=== PATIENT | male | born 1965 | race Caucasian/White ===

== ENCOUNTER 2020-06-26 12:25 | Inpatient (IN) | payer BC ==
[~2020-06-26] VITALS: Ht 182.9 cm; Wt 104.8 kg
--- OUTSIDE RECORDS SUMMARY | ~2020-06-26 | XMS | Encounter Summary ---
Demographics + + + | Address | [address] | | | [place] [address] | + + + | Home Phone | | + + + | Preferred Language | Unknown | + + + | Marital Status | Single | + + + | Catholic Affiliation | Unknown | + + + | Race | White | + + + | Ethnic Group | Not or | + + + Author + + + | Author | [facility] | + + + | Organization | [facility] | + + + | Address | Unknown | + + + | Phone | Unavailable | + + + Support + + +---------+ + | Name | Relationship | Address | Phone | + + +---------+ + | Karma Ortiz | ECON | Unknown | | + + +---------+ + Care Team Providers + +------+ + | Care Eyeglass Fitter Name | Role | Phone | + +------+ + | No Pcp Per Patient | PCP | Unavailable | + +------+ + Reason for Visit Diagnostic Testing (Routine) +--------+--------+ + + + + | Status | Reason | Specialty | Diagnoses / | Referred By | Referred To | | | | | Procedures | Contact | Contact | +--------+--------+ + + + + | Closed | | Cardiology | Diagnoses | Howard, | Car Echo | | | | | CHF | MD Dave | [facility] [address] | | | | | (congestive | [address] | | | | | heart | Mario Horn | [address] | | | | | failure) | Seng | [place] | | | | | (HCC) | [place], [place] | Building, [address]nd | | | | | Unspecified | [address] | floor | | | | | essential | Phone: | [place], [place] | | | | | hypertension | [phone] | [address] | | | | | Procedures | Fax: | Phone: | | | | | | [phone] | [phone] | | | | | TRANSTHORACI | | | | | | | C | | | | | | | ECHOCARDIOGR | | | | | | | AM, ADULT | | | +--------+--------+ + + + + Encounter Details +--------+ + + + + | Date | Type | Department | Care Team | Description | +--------+ + + + + | 02/21/ | Hospital | Cardiac | | | | 2010 | Encounter | Non-Invasive Testing | | | | | | at [facility] [address] | | | | | | [facility] | [facility], | | | | | | [address] | | | | | | [place], [place] | | | | | | [address] | | | | | | [phone] | | | +--------+ + + + + Social History + +-------+ [...] + + + + + + | Job Start Date | Occupation | Industry | + + + + | Not on file | Not on file | Not on file | + + + + + + + + | Travel History | Travel Start | Travel End | + + + + + + | No recent travel history available. | + + documented as of this encounter Medications at Time of Discharge + + + +---------+ + + | Medication | Sig | Dispensed | Refills | Start | End Date | | | | | | Date | | + + + +---------+ + + | albuterol (PROAIR | Inhale 1-2 Puffs | | 0 | | | | HFA) 90 | every four hours as | | | | | | mcg/Actuation | needed. | | | | | | Inhalation HFA | | | | | | | Aerosol Inhaler | | | | | | + + + +---------+ + + | | Inhale 2 Puffs every | | 0 | 02/22/20 | | | albuterol-ipratropiu | six hours. | | | 11 | | | m (COMBIVENT) 18-103 | | | | | | | mcg/Actuation | | | | | | | Inhalation Aerosol | | | | | | + + + +---------+ + + | | Take 1 Cap by mouth | 30 Cap | 30 | 02/22/20 | | | hydrochlorothiazide | once daily. | | | 11 | | | 12.5 mg Oral | | | | | | | CapsuleIndications: | | | | | | | CHF (congestive | | | | | | | heart failure) | | | | | | | ([facility]), Unspecified | | | | | | | essential | | | | | | | hypertension | | | | | | + + + +---------+ + + | metoprolol | Take 1 Tab by mouth | 60 Tab | 0 | 02/22/20 | | | tartrate 50 mg Oral | two times daily. | | | 11 | | | TabletIndications: | | | | | | | CHF (congestive | | | | | | | heart failure) | | | | | | | ([facility]), Unspecified | | | | | | | essential | | | | | | | hypertension | | | | | | + + + +---------+ + + documented as of this encounter Progress Hayley Garcia - 02/21/2011 2:02 PM PDTTransthoracic echocardiogram completed. Final r eport to follow. documented in this enco unter Plan of Treatment Not on filedocumented as of this encounter Procedures + +--------+ + + + | Procedure Name | Priori | Date/Time | Associated Diagnosis | Comments | | | ty | | | | + +--------+ + + + | TRANSTHORACIC | | 02/21/2011 | | Results for this | | ECHOCARDIOGRAM, | | 12:00 AM | | procedure are in the | | ADULT | | PDT | | results section. | + +--------+ + + + documented in this encounter Results TRANSTHORACIC ECHOCARDIOGRAM, ADULT (02/21/2011 12:00 AM PDT) + + + | Narrative | Performed At | + + + | | | + + + + + | Procedure Note | + + | Xochitl Lorenzo - 02/22/2011 10:02 AM PDT | | | + + documented in this encounter Visit Diagnoses Not on filedocumented in this encounter"
--- OUTSIDE RECORDS SUMMARY | ~2020-06-26 | XMS | Encounter Summary ---
Demographics + + + | Address | [address] | | | [place] [address] | + + + | Home Phone | | + + + | Preferred Language | Unknown | + + + | Marital Status | Single | + + + | Adventist Affiliation | Unknown | + + + | Race | White | + + + | Ethnic Group | Not or | + + + Author + + + | Author | [facility] | + + + | Organization | [facility] | + + + | Address | Unknown | + + + | Phone | Unavailable | + + + Support + + +---------+ + | Name | Relationship | Address | Phone | + + +---------+ + | Karma Ortiz | ECON | Unknown | | + + +---------+ + Care Team Providers + +------+ + | Care Search Marketing Analyst Name | Role | Phone | + +------+ + | No Pcp Per Patient | PCP | Unavailable | + +------+ + Encounter Details +--------+ + + + + | Date | Type | Department | Care Team | Description | +--------+ + + + + | 02/21/ | Hospital | Medicine | Tech, Pfl Adult | | | 2010 | Encounter | Specialties at [facility] | [facility] [address] [facility] | | | | | [address] | [facility] | | | | | Loop Physician's | [place] [address] | | | | | [place] [address], [address] [place] [address] | | | | | | [place], [place] | | | | | | [address] | | | | | | [phone] | | | +--------+ + + + [...] | | | | | | | ([facility]), Unspecified | | | | | | [...] | | | | | | | ([facility]), Unspecified | | | | | | [...] | + +--------+ + + + | SPIROMETRY BEFORE / | Routin | 02/21/2011 | Other emphysema | Results for this | | AFTER BRONCHODIL, | e | 11:10 AM | (HCC) | procedure are in the | | PULM FUNCTION LAB | | PDT | | results section. | + +--------+ + + + documented in this encounter Results SPIROMETRY BEFORE / AFTER BRONCHODIL, PULM FUNCTION LAB (02/21/2011 11:10 AM PDT) + + + + + + | Component | Value | Ref Range | Performed | Pathologist | | | | | At | Signature | + + + + + + | FVC PRE | 2.81 | 5.35 Liters | [facility] | | | | | | SPECIAL | | | | | | DIAGNOSTICS | | | | | | - | | | | | | PULMONARY | | | | | | FUNCTION | | + + + + + + | FVC PRE | 52 | % | [facility] | | | (%REF) | | | SPECIAL | | | | | | DIAGNOSTICS | | | | | | - | | | | | | PULMONARY | | | | | | FUNCTION | | + + + + + + | FVC POST | 2.84 | 5.35 Liters | [facility] | | | | | | SPECIAL | | | | | | DIAGNOSTICS | | | | | | - | | | | | | PULMONARY | | | | | | FUNCTION | | + + + + + + | FVC POST | 53 | % | [facility] | | | (%REF) | | | SPECIAL | | | | | | DIAGNOSTICS | | | | | | - | | | | | | PULMONARY | | | | | | FUNCTION | | + + + + + + | FEV1 PRE | 1.62 | 4.18 Liters | [facility] | | | | | | SPECIAL | | | | | | DIAGNOSTICS | | | | | | - | | | | | | PULMONARY | | | | | | FUNCTION | | + + + + + + | FEV1 PRE | 39 | % | [facility] | | | (%REF) | | | SPECIAL | | | | | | DIAGNOSTICS | | | | | | - | | | | | | PULMONARY | | | | | | FUNCTION | | + + + + + + | FEV1 POST | 1.74 | 4.18 Liters | [facility] | | | | | | SPECIAL | | | | | | DIAGNOSTICS | | | | | | - | | | | | | PULMONARY | | | | | | FUNCTION | | + + + + + + | FEV1 POST | 42 | % | [facility] | | | (%REF) | | | SPECIAL | | | | | | DIAGNOSTICS | | | | | | - | | | | | | PULMONARY | | | | | | FUNCTION | | + + + + + + | FEV1/FVC | 58 | 78 % | [facility] | | | PRE | | | SPECIAL | | | | | | DIAGNOSTICS | | | | | | - | | | | | | PULMONARY | | | | | | FUNCTION | | + + + + + + | FEV1/FVC | 74 | % | [facility] | | | PRE (%REF) | | | SPECIAL | | | | | | DIAGNOSTICS | | | | | | - | | | | | | PULMONARY | | | | | | FUNCTION | | + + + + + + | FEV1/FVC | 61 | 78 % | [facility] | | | POST | | | SPECIAL | | | | | | DIAGNOSTICS | | | | | | - | | | | | | PULMONARY | | | | | | FUNCTION | | + + + + + + | FEV1/FVC | 78 | % | [facility] | | | POST (%REF) | | | SPECIAL | | | | | | DIAGNOSTICS | | | | | | - | | | | | | PULMONARY | | | | | | FUNCTION | | + + + + + + | [id number]% | 0.72 | 3.74 L/sec | [facility] | | | PRE | | | SPECIAL | | | | | | DIAGNOSTICS | | | | | | - | | | | | | PULMONARY | | | | | | FUNCTION | | + + + + + + | GWI64-60% | 19 | % | [facility] | | | PRE (%REF) | | | SPECIAL | | | | | | DIAGNOSTICS | | | | | | - | | | | | | PULMONARY | | | | | | FUNCTION | | + + + + + + | UYX96-98% | 0.84 | 3.74 L/sec | [facility] | | | POST | | | SPECIAL | | | | | | DIAGNOSTICS | | | | | | - | | | | | | PULMONARY | | | | | | FUNCTION | | + + + + + + | XQU57-29% | 23 | % | [facility] | | | POST (%REF) | | | SPECIAL | | | | | | DIAGNOSTICS | | | | | | - | | | | | | PULMONARY | | | | | | FUNCTION | | + + + + + + | PEF PRE | 4.30 | 10.24 L/sec | [facility] | | | | | | SPECIAL | | | | | | DIAGNOSTICS | | | | | | - | | | | | | PULMONARY | | | | | | FUNCTION | | + + + + + + | PEF PRE | 42 | % | [facility] | | | (%REF) | | | SPECIAL | | | | | | DIAGNOSTICS | | | | | | - | | | | | | PULMONARY | | | | | | FUNCTION | | + + + + + + | PEF POST | 4.90 | 10.24 L/sec | [facility] | | | | | | SPECIAL | | | | | | DIAGNOSTICS | | | | | | - | | | | | | PULMONARY | | | | | | FUNCTION | | + + + + + + | PEF POST | 48 | % | [facility] | | | (%REF) | | | SPECIAL | | | | | | DIAGNOSTICS | | | | | | - | | | | | | PULMONARY | | | | | | FUNCTION | | + + + + + + | FIF50% PRE | 3.61 | L/sec | [facility] | | | | | | SPECIAL | | | | | | DIAGNOSTICS | | | | | | - | | | | | | PULMONARY | | | | | | FUNCTION | | + + + + + + | FIF50% POST | 2.46 | L/sec | [facility] | | | | | | SPECIAL | | | | | | DIAGNOSTICS | | | | | | - | | | | | | PULMONARY | | | | | | FUNCTION | | + + + + + + | PULMONARY | Name: ELIAS MCGEE | | [facility] | | | INTERPRETAT | ID# [id number] | | SPECIAL | | | ION | Date: | | DIAGNOSTICS | | | | 02/21/11 Age: 45 | | - | | | | Gender: | | PULMONARY | | | | Male Race: | | FUNCTION | | | | | | | | | | Height(in):Physician: | | | | | | JAYSHREE MOORE | | | | | | | | | | | | [place] Slabs Sawyer: Elias | | | | | | Maris RPFT Diagnosis: | | | | | | CHF 428.0 Hypertension | | | | | | 401.9 ######## | | | | | | | | | | | | Dyspnea | | | | | | Exercise: Yes Dyspnea | | | | | | Rest: Yes Cough: No | | | | | | | | | | | | Persistent: No | | | | | | Productive (cc): | | | | | | Smoker: Yes | | | | | | How Lon | | | | | | | | | | | | Cigarettes: Yes Quit: | | | | | | Yes | | | | | | | | | | | | Stopped: <1 Order# | | | | | | [id number] | | | | | | | | | | | | Spirometry | | | | | | Ref CI | | | | | | Pre Pre | | | | | | Post Post | | | | | | Post | | | | | | | | | | | | Binu % Ref | | | | | | Binu % Ref | | | | | | % ChgFVC | | | | | | Liters 5.35 0.97 | | | | | | 2.81 52 | | | | | | 2.84 53 | | | | | | 1FEV1 | | | | | | Liters 4.18 0.82 | | | | | | 1.62 39 | | | | | | 1.74 42 | | | | | | 7FEV1/FVC % | | | | | | 78 10 58 | | | | | | | | | | | | [id number]% L/sec | | | | | | 3.74 1.65 0.72 | | | | | | 19 0.84 | | | | | | 23 | | | | | | [id number] L/sec | | | | | | 0.72 | | | | | | 0.98 | | | | | | | | | | | | 36PEF | | | | | | L/sec 10.24 2.40 | | | | | | 4.30 42 | | | | | | 4.90 48 | | | | | | 94HNP76% L/sec | | | | | | | | | | | | 3.61 | | | | | | 2.46 | | | | | | -32 | | | | | | Lung | | | | | | VolumesTLC | | | | | | Liters 7.21 1.61VC | | | | | | Liters 5.35 | | | | | | 0.97IC | | | | | | Liters 3.43 0.74FRC | | | | | | N2 Liters 3.68 | | | | | | 1.46ERV | | | | | | Liters 1.72 0.37RV | | | | | | Liters 2.04 | | | | | | 0.76RV/TLC % | | | | | | 29 9Wash | | | | | | Time MinFRC PL | | | | | | Liters 3.68 1.46 | | | | | | | | | | | | Pulmonary Pressures | | | | | | | | | | | | Ref CI Pre Pre | | | | | | | | | | | | Binu | | | | | | % RefPI max cmH2O | | | | | | 119 42PI Volume | | | | | | LitersPE max cmH2O | | | | | | 258 70PE Volume | | | | | | Liters | | | | | | Diffusing | | | | | | Capacity (DLCO) | | | | | | | | | | | | Ref CI Pre | | | | | | Pre | | | | | | | | | | | | Binu % RefDLCO | | | | | | mL/mmHg/min | | | | | | 31.9 8.0DL Adj | | | | | | mL/mmHg/min 31.9 | | | | | | 8.0DLCO/VA | | | | | | mL/mHg/min/L 4.58 | | | | | | 1.20DL/VA Adj | | | | | | mL/mHg/min/L 4.44 PF | | | | | | Reference: NHANES III - | | | | | | | | | | | | | | | | | | | | | | | | | | | | | | | | | | | | Page 1Name: WHITE, ELIAS | | | | | | MARK ID: [id number] | | | | | | Date: | | | | | | 02/21/11 | | | | | | | | | | | | Six | | | | | | Minute Walk test (if | | | | | | done) | | | | | | COMMENTS:Spirometry | | | | | | data is ACCEPTABLE and | | | | | | REPRODUCIBLE. Last | | | | | | administered MDI X 2 | | | | | | puffsCombivent 4 hrs | | | | | | ago. | | | | | | | | | | | | | | | | | | Physician | | | | | | InterpretationSpirometry | | | | | | shows severe airflow | | | | | | obstruction indicated by | | | | | | a reduced | | | | | | FEV1/FVC.Reduced FVC | | | | | | indicates restriction or | | | | | | air trapping. The | | | | | | FEV1 increased 7 % | | | | | | afterinhaled albuterol | | | | | | which does not indicate | | | | | | significant | | | | | | reversibility. The | | | | | | cutpoint for significant | | | | | | reversibility is an | | | | | | increase in FEV1 or FVC | | | | | | of 12% wpm480pl from | | | | | | baseline. Increases | | | | | | between 5-12% suggest | | | | | | some degree | | | | | | ofreversibility. | | | | | | | | | | | | | | | | | | | | | | | | | | | | | | Page 2 | | | | + + + + + + + + | Specimen | + + | | + + + + + | Narrative | Performed At | + + + | | | + + + + + | Procedure Note | + + | Xochitl Lorenzo - 02/23/2011 5:16 PM PDT | | | + + + + + + + | Performing | Address | City/State/Zipcode | Phone Number | | Organization | | | | + + + + + | [facility] | [address] | [place], [place] | | | DIAGNOSTICS - | [address] | [address] | | | PULMONARY FUNCTION | | | | + + + + + documented in this encounter Visit Diagnoses + + | Diagnosis | + + | Other emphysema (HCC) Other emphysema | + + documented in this encounter"
--- OUTSIDE RECORDS SUMMARY | ~2020-06-26 | XMS | Encounter Summary ---
Demographics + + + | Address | [address] | | | [place] [address] | + + + | Home Phone | | + + + | Preferred Language | Unknown | + + + | Marital Status | Single | + + + | Lutheran Affiliation | Unknown | + + + | Race | White | + + + | Ethnic Group | Not or | + + + Author + + + | Author | [facility] | + + + | Organization | [facility] | + + + | Address | Unknown | + + + | Phone | Unavailable | + + + Support + + +---------+ + | Name | Relationship | Address | Phone | + + +---------+ + | Karma Ortiz | ECON | Unknown | | + + +---------+ + Care Team Providers + +------+ + | Care Piano And Organ Refinisher Name | Role | Phone | + +------+ + | No Pcp Per Patient | PCP | Unavailable | + +------+ + Reason for Visit + + + | Reason | Comments | + + + | Test Results | | + + + Encounter Details +--------+ + + + + | Date | Type | Department | Care Team | Description | +--------+ + + + + | 02/26/ | Telephone | Pulmonary & | David Oliveros, | Test Results | | 2010 | | Critical Care | [address] | | | | | Medicine at | [address] | | | | | Physicians [address] | [place], [place] | | | | | [address] | [address] | | | | | Loop Physician's | [phone] | | | | | [facility] Floor | | | | | | [place], [place] | | | | | | [address] | | | | | | [phone] | | | +--------+ + + + [...]
--- OUTSIDE RECORDS SUMMARY | ~2020-06-26 | XMS | Encounter Summary ---
Demographics + + + | Address | [address] | | | [place] [address] | + + + | Home Phone | | + + + | Preferred Language | Unknown | + + + | Marital Status | Single | + + + | Restorationist Affiliation | Unknown | + + + | Race | White | + + + | Ethnic Group | Not or | + + + Author + + + | Author | [facility] | + + + | Organization | [facility] | + + + | Address | Unknown | + + + | Phone | Unavailable | + + + Support + + +---------+ + | Name | Relationship | Address | Phone | + + +---------+ + | Karma Ortiz | ECON | Unknown | | + + +---------+ + Care Team Providers + +------+ + | Care Manager Sales And Marketing Name | Role | Phone | + +------+ + | No Pcp Per Patient | PCP | Unavailable | + +------+ + Encounter Details +--------+ + + + + | Date | Type | Department | Care Team | Description | +--------+ + + + + | 03/01/ | Telephone | Pulmonary & | David Oliveros, | | | 2010 | | Critical Care | [address] | | | | | Medicine at | [address] | | | | | [facility] [address] | [place], [place] | | | | | [address] | [address] | | | | | Loop Physician's | [phone] | | | | | [address], [address] [place] [address] | | | | | | [place], [place] | | | | | | [address] | | | | | | [phone] | | | +--------+ + + + [...]
--- OUTSIDE RECORDS SUMMARY | ~2020-06-26 | XMS | Clinical Summary ---
Demographics + + + | Address | [address] | | | [place] [address] | + + + | Home Phone [...] Author + + + | Author | [facility] | + + + | Organization | [facility] | + + + | Address | Unknown | + + + | Phone | Unavailable | + + + Support + + +---------+ + | Name | Relationship | Address | Phone | + + +---------+ + | Karma Ortiz | ECON | Unknown | | + + +---------+ + Care Team Providers + +------+ + | Care Resource Conservation Specialist Name | Role | Phone | + +------+ + | No Pcp Per Patient | PCP | Unavailable | + +------+ + Source Comments JOSE CARLOS is fully live on both [facility] and [facility] InPatient[facility] Allergies No Known Allergies Medications + + + +---------+------+------+-------+ | Medication | Sig | Dispensed | Refills | Star | End | Statu | | | | | | t | Date | s | | | | | | Date | | | + + + +---------+------+------+-------+ | | Inhale 2 Puffs every | | 0 | 04/0 | | Activ | | albuterol-ipratropiu | six hours. | | | 6/20 | | e | | m (COMBIVENT) 18-103 | | | | 11 | | | | mcg/Actuation | | | | | | | | Inhalation Aerosol | | | | | | | + + + +---------+------+------+-------+ | albuterol (PROAIR | Inhale 1-2 Puffs | | 0 | | | Activ | | HFA) 90 | every four hours as | | | | | e | | mcg/Actuation | needed. | | | | | | | Inhalation HFA | | | | | | | | Aerosol Inhaler | | | | | | | + + + +---------+------+------+-------+ | | Take 1 Cap by mouth | 30 Cap | 30 | 04/0 | | Activ | | hydrochlorothiazide | once daily. | | | 05/07 | | e | | 12.5 mg Oral | | | | 11 | | | | CapsuleIndications: | | | | | | | | CHF (congestive | | | | | | | | heart failure) | | | | | | | | ([facility]), Unspecified | | | | | | | | essential | | | | | | | | hypertension | | | | | | | + + + +---------+------+------+-------+ | metoprolol | Take 1 Tab by mouth | 60 Tab | 0 | 04/0 | | Activ | | tartrate 50 mg Oral | two times daily. | | | 05/07 | | e | | TabletIndications: | | | | 11 | | | | CHF (congestive | | | | | | | | heart failure) | | | | | | | | ([facility]), Unspecified | | | | | | | | essential | | | | | | | | hypertension | | | | | | | + + + +---------+------+------+-------+ | salmeterol 50 | Inhale 1 Puff two | 1 | 6 | 04/1 | | Activ | | mcg/dose Inhalation | times daily. Morning | Inhaler | | 03/07 | | e | | Disk with Device | and evening. Rinse | | | 11 | | | | | mouth after use. | | | | | | + + + +---------+------+------+-------+ Active Problems Not on file Social History + +-------+ +--------+ + | [...] recent travel history available. | + + Last Filed Vital Signs + + + + + | Vital Sign | Reading | Time Taken | Comments | + + + + + | Blood Pressure | 168/82 | 02/21/2011 8:34 AM | | | | | PDT | | + + + + + | Pulse | 101 | 02/21/2011 8:09 AM | | | | | PDT | | + + + + + | Temperature | 36.7 C (98 F) | 02/21/2011 8:09 AM | | | | | PDT | | + + + + + | Respiratory Rate | 16 | 02/21/2011 8:09 AM | | | | | PDT | | + + + + + | Oxygen Saturation | 95% | 02/21/2011 8:09 AM | | | | | PDT | | + + + + + | Inhaled Oxygen | - | - | | | Concentration | | | | + + + + + | Weight | 89.6 kg (197 lb 9.6 | 02/21/2011 8:09 AM | | | | oz) | PDT | | + + + + + | Height | 181 cm (5' 11.25") | 02/21/2011 8:09 AM | | | | | PDT | | + + + + + | Body Mass Index | 27.37 | 02/21/2011 8:09 AM | | | | | PDT | | + + + + + Plan of Treatment + + + + + | Health Maintenance | Due Date | Last Done | Comments | + + + + + | Influenza (Flu) | | | | | vaccination (#1) | 9 | | | + + + + + | Pneumococcal | Aged Out | | No longer eligible | | vaccination | | | based on patient's | | | | | age to complete this | | | | | topic | + + + + + Results Not on filefrom Last 3 Months Insurance + +--------+ +--------+ + +------+ | Payer | Benefi | Subscriber | Effect | Phone | Address | Type | | | t Plan | ID | dennise | | | | | | / | | Dates | | | | | | Group | | | | | | + +--------+ +--------+ + +------+ | BLUE CROSS BLUE | BCBS | [phone] | 02/17/20 | [phone] | [address] | PPO | | SHIELD | OUT OF | x | 11-Pre | 8 | [address] | | | | STATE | | sent | | [place], | | | | | | | | [place] | | | | | | | | [id number] | | + +--------+ +--------+ + +------+ + +--------+ +--------+ + + | Guarantor Name | Accoun | Relation to | Date | Phone | Billing Address | | | t Type | Patient | of | | | | | | | | | | + +--------+ +--------+ + + | Jeremias Morris | Person | Self | [birth year] | [address] | | | al/Fam | | 1965 | [phone] | [place] [address] | | | [place] | | | 3 (Home) | | + +--------+ +--------+ + +
--- OUTSIDE RECORDS SUMMARY | ~2020-06-26 | XMS | Encounter Summary ---
Demographics + + + | Address | [address] | | | [place] [address] | + + + | Home Phone | | + + + | Preferred Language | Unknown | + + + | Marital Status | Single | + + + | Evangelical Affiliation | Unknown | + + + | Race | White | + + + | Ethnic Group | Not or | + + + Author + + + | Author | [facility] | + + + | Organization | [facility] | + + + | Address | Unknown | + + + | Phone | Unavailable | + + + Support + + +---------+ + | Name | Relationship | Address | Phone | + + +---------+ + | Karma Otriz | ECON | Unknown | | + + +---------+ + Care Team Providers + +------+ + | Care Guitar Technician Name | Role | Phone | + [...] | | CHF | MD Jayshree | [facility] [address] | | | | | (congestive | [address] | | | | | heart | [address] | [address] | | | | | failure) | Seng | [place]win | | | | | (HCC) | [place], [place] | Building, 2nd | | | | | Unspecified | [address] | floor | | | | | essential | Phone: | [place], [place] | | | | | hypertension | [phone] | [address] | | | | | Procedures | Fax: | Phone: | | | | | | [phone] | [phone] | | | | | TRANSTHORACI | [...] | effusion | [place] | [address] | | | | | | NEUROSURGERY | [address] | | | | | | & SPINE | [address] [place], | | | | | | [address] | [place] | | | | | | [address] | [address] | | | | | | [place] | Phone: | | | | | | [address] | [phone] | | | | | | Phone: | Fax: | | | | | | [phone] | [phone] | | | | | | Fax: | | | | | | | [phone] | | +--------+--------+ + + + + Encounter Details +--------+---------+ + + + | Date | Type | Department | Care Team | Description | +--------+---------+ + + + | 02/21/ | Office | Pulmonary & | David Oliveros, | CHF (congestive | | 2010 | Visit | Critical Care | [address] | heart failure) | | | | Medicine at | [address] | ([facility]); Other | | | | [facility] | [place], [place] | emphysema ([facility]); | | | | [address] | [address] | Unspecified | | | | [address] [facility] | [phone] | essential | | | | Pavilion, 3rd Floor | | hypertension | | | | [place], [place] | | | | | | [address] | | | | | | [phone] | | | +--------+---------+ + + + [...] in this encounter Patient Instructions Patient Instructions David Walker MD - 02/21/2011 10:08 AM PDTYou have several [...] in supermarket/pharmacy or buy a monitor in [facility] and keep a log of 3 measurements per week and take to PCP. 6. I will call you with the results of the ultrasound (echo) of your heart and your pulmona ry function tests. Please call if you have questions. documented in this encounter Progress Notes Jayshree Howard MD - 03/03/2011 4:11 PM PDTI have seen patient with Dr. Princeton. I agree with plans. I had discussed patient by phone with his doctor a week or so earlier that [facility] ed the referral. 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 He moves around [place] on various jobs. No wheeze, cough, fever, chills. He has hyper tension. He has been using nebulized albuterol for the symptoms. No known DC. He smokes ciga rettes including 35 pacy [...] cigarettes. He seemed to understand the importance. David Lowe MD - 02/21/2011 8:29 AM PDT New Patient Pulmonary consultation Date: 02/21/2011 Primary care provider: No Pcp Per PATIENT NO PCP PER PATIENT Referring provider: MARK PANDA [facility] [address] [place] [id number] Elias Morris is a 45 y.o. male was referred to pulmonary clinic for the evaluation of bilateral pleural effusion and shortness of breath.. Source of information: Patient and outside medical records. History of Present Illness: Elias is a pleasant 45 year old male who comes to the pulmonary clinic after being referred to us from ER in [facility] where he was se en on 02/13/2011 [...] referred to us after discussion with Dr. Howard. The patient says he has history of [...] The patient is single and lives in [place], [place]. -Tobacco history: History Smoking status Not on file Smokeless tobacco Not on file -Occupational/ history: Never served in the . 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 He has worked several periods of 6 - 8 months in [place] for the last 3 -4 years. He has also been down in [place] in [facility] and was also working in [place] for the same reason. Cuong lakhani here in [place] lives with significant other friend who is with him in the examining room. 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 -Hobbies: None that involve exposure to fumes/irritants/ -Travel History: see above -Animal exposures: Has 1 dog and 1 cat in [place]. None here. -Tuberculosis exposure: Denies Family History: [...] male who comes to the Pulmonary depar tment referred by ER in [place] for newly diagnosed bilateral pleural effusions in [...] his BP. Will repeat labs on the February to monitor renal function and sodium. Recommendations: 1. Establish with PCP in his area 2. Monitor BP as outpatient and keep log to take to PCP 3. Start metoprolol and HCTZ for BP control. 4. Consider bronchodilator either with LABA or tiotropium plus rescue inhaler. Patient was seen and examined with Dr. Howard. We spent 65 min in his care more than 50% of which was spent in face to face discussion and counseling. DAVID IVY MD AUDIOLOGY DIRECTOR [address] [facility] Mailcode: [id number] [address] [phone] signed by David Ivy MD at 02/28/2011 7:42 PM PDTdocu mented in this encounter Plan of Treatment + +------+--------+ + + | Name | Type | Priori | Associated Diagnoses | Order Schedule | | | | ty | | | + +------+--------+ + + | TRANSTHORACIC | ECG | Routin | CHF (congestive | Ordered: 02/21/2011 | | ECHOCARDIOGRAM, | | e | heart failure) ([facility]) | | | ADULT | | | [...] | + + | Xochitl Lorenzo - 03/03/2011 12:00 AM PDT | | [...] + | [facility] | [address] | [place], [place] | | | CARDIOLOGY | [address] | [address] | | + + + + + [...] | + + + + + | [facility] | [address] | [place], [place] | | | CARDIOLOGY | [address] | [address] | | + + + + + [...] + + + + + + | GKE11-04% | 0.72 | 3.74 L/sec | [facility] | | | PRE | | | SPECIAL | | | | | | DIAGNOSTICS | | | | | | - | | | | | | PULMONARY | | | | | | FUNCTION | | + + + + + + | BRX11-01% | 19 | % | [facility] | | | PRE (%REF) | | | SPECIAL | | | | | | DIAGNOSTICS | | | | | | - | | | | | | PULMONARY | | | | | | FUNCTION | | + + + + + + | ASQ31-55% | 0.84 | 3.74 L/sec | [facility] | | | POST | | | SPECIAL | | | | | | DIAGNOSTICS | | | | | | - | | | | | | PULMONARY | | | | | | FUNCTION | | + + + + + + | YGB19-75% | 23 | % | [facility] | [...] [facility] | | | INTERPRETAT | ID# [id number] | | SPECIAL | | | ION | Date: | | DIAGNOSTICS | | | | 02/21/11 Age: 45 | | - | | | | Gender: | | PULMONARY | | | | Male Race: | | FUNCTION | | | | | | | | | | Height(in):Physician: | | | | | | JAYSHREE HOWARD | | | | | | | | | | | | Gantry Rigger: Elias | | | | | | [...] Order# | | | | | | [id number] | | | | | | | [...] | | | | | | | [id number]% L/sec | | | | | | 3.74 1.65 0.72 | | | | | | 19 0.84 | | | | | | 23 | | | | | | [id number] L/sec | | | | | | 0.72 | | | | | | 0.98 | | | | | | | | | | | | 36PEF | | | | | | L/sec 10.24 2.40 | | | | | | 4.30 42 | | | | | | 4.90 48 | | | | | | [id number]% L/sec | | | | | | [...] | | | | | MARK ID: [id number] | | | | | | Date: [...] | | | | | of 12% [id number] from | | | | | | [...] | [facility] | [address] | [place], [place] | | | DIAGNOSTICS - | [address] | [address] | | | PULMONARY FUNCTION | | [...]
--- OUTSIDE RECORDS SUMMARY | ~2020-06-26 | XMS | Encounter Summary ---
Demographics + + + | Address | [address] | | | [place] [address] | + + + | Home Phone | | + + + | Preferred Language | Unknown | + + + | Marital Status | Single | + + + | Anglican Affiliation | Unknown | + + + [...] Team Providers + +------+ + | Care Medical Oncology Physician Name | Role | Phone | + +------+ + | No Pcp Per Patient | PCP | Unavailable | + +------+ + Reason for Visit + + + | Reason | Comments | + + + | Medication Refill | METOPROLOL | + + + Encounter Details +--------+ + + + + | Date | Type | Department | Care Team | Description | +--------+ + + + + | 03/26/ | Telephone | Pulmonary & | David Oliveros, | Medication Refill | | 2010 | | Critical Care | MD Abigail Wong | (METOPROLOL) | | | | Medicine at | [address] | | | | | [facility] | [place], [place] | | | | | [address] | [address] | | | | | [facility] | [phone] | | | | | [facility], [address] [place] [address] | | | | | | [place], [place] | | | | | | [address] | | | | | | [phone] | | | +--------+ + + + [...]
--- OUTSIDE RECORDS SUMMARY | ~2020-06-26 | XMS | Encounter Summary ---
Demographics + + + | Address | [address] | | | [place] [address] | + + + | Home Phone [...] Team Providers + +------+ + | Care Actuary Name | Role | Phone | + [...] not | | | | Medicine at [facility] | [address] | elsewhere classified | | | | [address] | [place], [place] | (Primary Dx) | | | | [facility] | [address] | | | | | [facility], [facility] Floor | [phone] | | | | | [place], [place] | | | | | | [address] | | | | | | [phone] | | | +--------+ + + + [...] + documented as of this encounter Progress Notes Dave Howard MD - 03/07/2011 11:43 AM PDTRefer to PFT report. documented in this encounter Plan of Treatment Not on filedocumented as of this encounter Procedures + +--------+ + + + | Procedure Name | Priori | Date/Time | Associated Diagnosis | Comments | | | ty | | | | + +--------+ + + + | DC EVAL OF | Routin | 03/07/2011 | Chronic airway | | | BRONCHOSPASM | e | 11:43 AM | obstruction, not | | | | | PDT | elsewhere classified | | + +--------+ + + + | SPIROMETRY BEFORE / | Routin | 02/21/2011 | Other emphysema | Results for this | | AFTER BRONCHODIL, | e | 11:10 AM | ([facility]) | procedure are in the | | PULM FUNCTION LAB | | PDT | | results section. | + +--------+ + + + documented in this encounter Visit Diagnoses + + | Diagnosis | + + | Chronic airway obstruction, not elsewhere classified - Primary | + + documented in this encounter"
[2020-06-26] MEDS ORDERED: LISINOPRIL-HCT1 EAC2 PO (14:43)
[2020-06-26] MEDS ORDERED: FENOFIBRATE160 MG PO (14:43)
[2020-06-26] MEDS ORDERED: METOPROLOL TART50 MG PO (14:44)
--- NOTE | 2020-06-26 18:38 | NUR ---
DILT GTT TURNED UP TO 15 MG/HR PER DR. VILLAGOMEZ. HR REMAINS 140-150s, REGULAR. PT ON BIPAP AT 12/5 AND 30% FI02.
--- NOTE | 2020-06-26 18:40 | NUR ---
PATIENT ARRIVES TO CCU AROUN 1814. PATIENT ABLE TO STAND AND MOVE OVER TO CCU BED. PT DUSKY AND JULY COLORED, WITH PURPLEISH NOSE. PT ABLE TO TALK ANHQ1DPG. PT ON 6 L NC WHEN ARRIVES TO ROOM. RT IN ROOM AND PLACES PATIENT ON BIPAP. HR IN THE 140-150s, REGULAR, COULD POTENTIALLY BE SVT OR AFLUTTER. DILT GTT AT 10 MG/HR UPON ARRIVAL BUT TURNED UP TO 15 MG/HR. DINNER ORDERED FOR PATIENT. PATIENT STATES HE IS BREATHING OKAY AND DOESN'T APPEAR TO BE OVEREXERTING HIMSELF. PT NOW TALKING ON THE PHONE WITH HIS . 2+ EDEMA IN LOWER LEGS. NIETO DRAINING YELLOW URINE. CONTINUE TO MONITOR.
--- NOTE | 2020-06-26 19:09 | NUR ---
PATIENT EATING HIS DINNER AT THIS TIME. SP02 IS 90% ON 6 L AT THIS TIME. REPORT TO TOPPER PACKER.
--- NOTE | 2020-06-26 19:30 | NUR ---
Report received, orders acknowledged. Patient laying in bed watching tv. 6LNC in place with SpO2 ranging in the low 90's. Diltiazem gtt infusing at 15mg/hr. HR sustaining in the 150's. Call light within reach.
--- NOTE | 2020-06-26 20:00 | NUR ---
Patient laying in bed watching tv, 6LNC in place with an SpO2 of 93%. Diltiazem gtt infusing at 15mg/hr, HR in the 150's. Patient placed on bipap, with settings of 12/5. Vital signs taken, assessment complete. Lung sounds dim and tight with expiratory coarseness noted. RT in room to administer neb tx through bipap machine.
--- NOTE | 2020-06-26 21:22 | EKG ---
[facility] [address] [facility] [place] [address] Signed Sinus rhythm with occasional premature ventricular complexes Biatrial enlargement Rightward axis Pulmonary disease pattern T wave abnormality, consider anterior ischemia Abnormal ECG No previous ECGs available Confirmed by JAZLYN VILLAGOMEZ MD ([id number]) on 06/26/2020 9:22:13 PM Electronically Signed By: JAZLYN VILLAGOMEZ MD 06/26/202121 PATIENT NAME: ELIAS MCGEE Electrocardiogram DATE OF : 61 PHYSICIAN: JAZLYN VILLAGOMEZ MD REPORT #: [id number] REPORT IS CONFIDENTIAL AND NOT TO BE RELEASED WITHOUT AUTHORIZATION
--- NOTE | 2020-06-26 21:22 | EKG ---
[facility] [address] [place] [address] Signed Supraventricular tachycardia Likely Atrial flutter with 2:1 block Rightward axis Septal infarct , age undetermined ST \T\ T wave abnormality, consider inferior ischemia Abnormal ECG When compared with ECG of 26-JUN-2020 12:35, (Unconfirmed) premature ventricular complexes are no longer present Vent. rate has increased BY [address] now depressed in Inferior leads T wave inversion now evident in Inferior leads Confirmed by JAZLYN VILLAGOMEZ MD ([id number]) on 06/26/2020 9:22:40 PM Electronically Signed By: JAZLYN VILLAGOMEZ MD 06/26/202121 PATIENT NAME: ELIAS MCGEE Electrocardiogram DATE OF : 61 PHYSICIAN: JAZLYN VILLAGOMEZ MD REPORT #: [id number] REPORT IS CONFIDENTIAL AND NOT TO BE RELEASED WITHOUT AUTHORIZATION
--- NOTE | 2020-06-26 21:45 | NUR ---
Patient laying in bed watching tv. Diltiazem gtt infusing at 15 mg/hr, HR sustaining in the 150's. 50mg of PO metoprolol given. PM medications given. Montiel catheter emptied of 250 mls of concentrated urine. After PO medications given, patient resumes bipap tx with settings of 12/5. SpO2 ranging in the low 90's. Patient denies further needs at this time, call light within reach.
--- NOTE | 2020-06-27 02:15 | NUR ---
Patient laying in bed watching tv. Diltiazem gtt running at 15mg/hr. HR in the 100's. 50mg of PO metoprolol given. Patient wearing 6LNC while taking PO meds, SpO2 in the low to mid-90's. CPAP put in place on patient after PO meds, settings of 30% FiO2 with an SpO2 of 93%. Water refreshed. Patient denies further needs, call light within reach.
--- NOTE | 2020-06-27 02:58 | NUR ---
Patient laying in bed watching tv. CPAP in place at 30% FiO2, SpO2 of 94%. Patient denies needs at this time, call light within reach.
--- NOTE | 2020-06-27 05:30 | NUR ---
Patient laying in bed watching tv with CPAP in place, pressure set at 10. SpO2 remains in the low 90's. Patient requests switching to NC for comfort for awhile, which is accomodated. 6LNC in place, SpO2 remains in the low 90's. HR remains in the 110's. Diltiazem gtt infusing at 15 mg/hr. Patient denies further needs, call light within reach.
--- NOTE | 2020-06-27 05:51 | NUR ---
Dr. Mahoney called and notified of run of 8 beats of vtach at 0537, as well as 2.67 second pause followed by 6 beats of SR before returning to atrial flutter. No new orders acknowledged, will continue to monitor patient.
--- NOTE | 2020-06-27 08:07 | NUR ---
TALKED WITH PATIENT'S THIS AM ON PHONE AND RECEIVED PHONE NUMBERS FOR PATIENT'S PCP IN [place]. PHONE NUMBER FOR HIS DOCTOR IS [phone] - DR. DAVIDSON. PATIENT ALSO SAW A SLEEP MD FROM [facility], AND THE NUMBER IS [phone]. PT'S THOUGHT THIS NAME WAS DR. SANCHEZ BUT WASN'T 100% ON NAME.
--- NOTE | 2020-06-27 08:38 | NUR ---
IN ROOM FOR ASSESSMENT, MEDS, VITALS, BREAKFAST TRAY. PT STATES HE IS FEELING MUCH BETTER. PT DOES STATE HE DID NOT SLEEP LAST NIGHT " BECAUSE HIS A NERVOUS WRECK." DISCUSSED THIS WITH PATIENT. PT CONVERTED TO SINUS AT 0800. DILT GTT REMAINS ON AT 15 MG/HR, AND WILL BE TITRATED DOWN TO 10 MG/HR AT THIS TIME. PT EATING HIS BREAKFAST. DENTURES CLEANED AND RETURNED TO PATIENT. LUNG SOUNDS FAIRLY CLEAR THROUGOUT AT THIS TIME. OXYGEN DOWN TO 5 L NC AND SP02 IS 93%. WILL CONTINUE TO TITRATE DOWN.
--- NOTE | 2020-06-27 09:36 | NUR ---
NIETO CATH TAKEN OUT UPON RN REQUEST. PATIENT TRANSFERED TO BSC AND BACK TO BED, SBA. CALL LIGHT IN REACH. NO FURTHER NEEDS AT THIS TIME.
--- NOTE | 2020-06-27 11:03 | NUR ---
DR. VILLAGOMEZ SAW PATIENT EARLIER, AROUND 0900. PLAN TO INCREASE DIURETICS AND KEEP PT ON DILT GTT. ORAL DILT TO BE GIVEN LATER. ECHO COMPLETE. U/S OF KIDNEYS TO BE DONE. NIETO D/C PER HONEY EXTRACTOR. PT DUE TO VOID. LASIX GIVEN, SEE EMAR. PT GIVEN URINAL. OXYGEN TURNED DOWN TO 3 L NC. SP02 94%. PT STATES HE IS FEELING GOOD. CONTINUE TO MONITOR.
--- NOTE | 2020-06-27 11:25 | NUR ---
U/S IN ROOM AT THIS TIME FOR U/S OF KIDNEYS. PATIENT RECEIVING IV MAG. DILT GTT REMAINS AT 10 MG/HR. CONTINUE TO MONITOR.
[2020-06-27] MEDS ORDERED: FLUTICASONE-SA1 EAC3 INH (11:37)
[2020-06-27] MEDS ORDERED: SILDENAFIL CITR50 MG PO (11:38)
--- NOTE | 2020-06-27 14:08 | NUR ---
PT PRESUMED COVID POSITIVE AWAITING RESULTS OF TEST. WILL WAIT WELL
--- NOTE | 2020-06-27 14:10 | NUR ---
1130 COPD CARE PATH: BASED ON CURRENT MED REGIMINE PERCIEVED SHORTNESS OF BREATH AND ADMSSION FOR COPD EXACERBATION RT MAKES FOLLOWING RECOMENDATION. SPOKE WITH CLINICAL PHARMACY ABOUT RECOMENDING THAT ADVAIR DOSE BE INCREASED. INHALER TRAINING WITH SPACER FOR HOME RESCUE INHALER. SMOKING CESSATION COUNCILING SESSION 3-5MIN WITH QUIT GUIDE AND REFERRAL TO QUITLINE.
--- NOTE | 2020-06-27 14:19 | NUR ---
MED REC COMPLETE
--- NOTE | 2020-06-27 15:18 | NUR ---
CALLED DR. VILLAGOMEZ ABOUT LOW URINE OUTPUT AFTER 120 MG IV LASIX. PATIENT ABLE TO VOID 100 ML, CONCENTRATED. BLADDER SCANNED FOR [address] VILLAGOMEZ AWARE. NEW ORDERS RE'C D TO D/C DILT GTT AFTER 1 HR OF PO DILT GIVEN, 75 MG. PT NOW ON 3 L NC AND 100%.
--- NOTE | 2020-06-27 16:01 | NUR ---
IN TO ADMOSCAR [facility]QUE. PT SITTING IN BED WITH 3L NC IN PLACE. RR 23, DENEIS DIFFICULTY BREATHING. CALL LIGHT IN REACH.
--- NOTE | 2020-06-27 17:14 | NUR ---
PATIENT UP TO CHAIR FOR DINNER. LINEN CHANGED. PT REMAINS ON 3 L NC. DENIES SOB. ECHO RESULTS BACK AND WILL DISCUSS WITH MD. DILT GTT OFF AT 1745, 1 HR AFTER ORAL DILT WAS GIVEN. ENCOURAGING PO INTAKE. LABS DUE AT 1800
--- NOTE | 2020-06-27 17:37 | NUR ---
DR. VILLAGOMEZ CALLED AND UPDATED ON ECHO RESULTS. NO FURTHER ORDERS.
--- NOTE | 2020-06-27 19:30 | NUR ---
SHIFT REPORT RECEIVED. PATIENT RESTING IN BED. O2 SAT 89% ON 3L NC.
--- NOTE | 2020-06-27 20:50 | NUR ---
PATIENT PROVIDED WITH EVENING MEDS. PATIENT VERBALIZED UNDERSTANDING OF MEDICATIONS. PATIENT DENIES FEELING SOB AT REST. O2 SAT 87% ON 3L NC, TITRATED TO 4L NC. PAPR IN USE, UNABLE TO LISTEN TO LUNG SOUNDS. ABD IS LARGELY DISTENDED, PATIENT DENIES PAIN OR NAUSEA. 2+ EDEMA NOTED IN RUSTAM LOWER EXTREMITITES. PATIENT REPORTS IMPROVEMENT IN THIS EDEMA. PATIENT DENIES NEED TO VOID. VS STABLE. HR CONTROLLED, SR 78. FRESH ICE WATER PROVIDED. DISCUSSED USE OF CPAP AND PATIENT IS HESITANT BUT STATES "IN A LITTLE BIT I'LL TRY IT FOR A FEW HOURS". RT WILL DISCUSS FURTHER WHEN AVAILABLE TO PROVIDED NEBS. PATIENT DENIED ANY FURTHER NEEDS. CALL LIGHT IN REACH.
--- NOTE | 2020-06-27 21:06 | PATH ---
[facility] [address], [place] [address] Signed ORDERING PHYSICIAN: Emmett Lane MD PATIENT NAME: ELIAS MCGEE GENDER: M : 1965 SPECIMEN(S): No Source Given MOLECULAR PATHOLOGY RESULTS: SARS-CoV-2 Not Detected ADDITIONAL NOTES.: The Madison Fusion SARS-CoV-2 Assay is a multiplex real-time PCR (RT-PCR) in vitro diagnostic test intended for the qualitative detection of RNA from SARS-CoV-2 from individuals who meet COVID-19 clinical and/or epidemiological criteria. In general, SARS-CoV-2 RNA can be detected during the acute phase of infection. Positive results indicate the presence of SARS-CoV-2 RNA. Clinical correlation with patient history and other diagnostic information is necessary to determine patient infection status. Positive results do not rule out bacterial infection or co-infection with other viruses. Negative results do not preclude SARS-CoV-2 infection and should not be used as the sole basis for patient management decisions. Negative results must be combined with other clinical observations, patient history, and epidemiological information. The Madison Fusion SARS-CoV-2 Assay is not yet approved or cleared by the [place] FDA. When there are no FDA-approved or cleared tests available, and other criteria are met, FDA can make tests available under an emergency access mechanism called an Emergency Use Authorization (EUA). The EUA for this test is supported by the [place] of Health and Human Service's (HHS's) declaration that circumstances exist to justify the emergency use of in vitro diagnostics for the detection and/or diagnosis of the virus that causes COVID-19. This EUA will remain in effect for the duration of the COVID-19 declaration justifying emergency of IVDs, unless it is terminated or revoked by FDA, after which the test may no longer be used. The Madison Fusion SARS-CoV-2 Assay is for use only under EUA in US laboratories certified under the Clinical Laboratory Improvement Amendments of 1988 (CLIA) to perform high complexity tests. [facility] is certified under CLIA to perform high complexity PATIENT NAME: ELIAS MCGEE PATHOLOGY DATE OF : 61 REPORT #: [id number] PHYSICIAN: LATOSHA LEONG PCP: OTHER PCP REPORT IS CONFIDENTIAL AND NOT TO BE RELEASED WITHOUT AUTHORIZATION [address] [address] Signed clinical laboratory testing. PERFORMING LABORATORY.: Molecular testing was performed by [facility] [place] [address] (Longwall Shearer Operator: Rob Hinds D.O.; CLIA#: [id number]) Diagnostician: System Interface Pathologist Electronically Signed 06/27/2020 Copies: ~ PATIENT NAME: ELIAS MCGEE PATHOLOGY DATE OF : 61 REPORT #: [id number] PHYSICIAN: LATOSHA LEONG PCP: OTHER PCP REPORT IS CONFIDENTIAL AND NOT TO BE RELEASED WITHOUT AUTHORIZATION
--- NOTE | 2020-06-28 00:45 | NUR ---
PATIENT HAD BEEN SLEEPING SOUNDLY. DESATS WITH 5L NC IN PLACE. RT IN TO PLACE CPAP AT THIS TIME. PATIENT ASSISTED TO REPOSIITON. URNAL EMPTIED FOR 200 FOR DARK AMY COLORED URINE.
--- NOTE | 2020-06-28 01:56 | NUR ---
PATIENT REPORTS DISCOMFORT WITH CPAP AND REQUEST TO TAKE IT OFF. ENCOURAGED PATIENT TO CONTINUE TO TRY TO GET USED TO THE CPAP AND ALLOW IT TO WORK WITH HIS BREATHING. PATIENT AGREES TO TRY FOR A LITTLE BIT LONGER.
--- NOTE | 2020-06-28 02:32 | NUR ---
CPAP REMOVED. 4L IN PL[address]. PATIENT PROVIDED WITH SCHEDULED MEDS. DENIES ANY CONCERNS AT THIS TIME. CALL LIGHT IN REACH.
--- NOTE | 2020-06-28 04:00 | NUR ---
PATIENT RESTING IN BED WATCHING TV. DENIES FEELING SOB. LUNG SOUNDS ARE CLEAR. DENIES NEED FOR NEB TREATMENT, RT NOTED. PATIENT DENIES NEED TO VOID. TOLERATING 5L NC. ENCOURAGE ORAL INTAKE. CALL LIGHT IN REACH.
--- NOTE | 2020-06-28 06:29 | NUR ---
DISCUSSED PATIENT'S LABS AND POOR URINE OUTPUT WITH . NO NEW ORDERS.
--- NOTE | 2020-06-28 06:39 | NUR ---
DISCUSSED NEW LAB RESULTS AND ENCOURAGED PATIENT TO DRINK WATER. PATIENT ALSO REQUEST COFFEE WITH WAS PROVIDED. PATIENT REPORTS FEELING RESTED AND HAS MORE ENERGY THIS MORNING.
--- NOTE | 2020-06-28 08:04 | NUR ---
IN PATIENT'S ROOM. PT'S ARRIVES AND CASE MANAGEMENT IN ROOM WELL. BREAKFAST ORDERED. PATIENT WAS ASLEEP WHEN THIS RN ENTERS IN ROOM. SP02 IS 94% ON 5 L NC AT THIS TIME. LUNG SOUNDS RELATIVELY CLEAR, NO WHEEZING HEARD. PT VOIDS CONCENTRATED URINE IN URINAL. CONTINUE TO MONITOR.
--- NOTE | 2020-06-28 08:10 | NUR ---
Spoke with Jeremias and his . They are from [facility]. Currently in [employer] in and [facility] while he works on [employer]. He is active and independent. Uses a CPAP, but 0 other DME. Plan on returning [place] to [place] when discharged. States it will take he and Stacy to drive. Will follow up with Dr. Mahoney. Denies needs for dc.
--- NOTE | 2020-06-28 10:08 | NUR ---
DR. VILLAGOMEZ IN ROOM WITH PATIENT AND HIS AND DISCUSSING PLAN OF CARE. PATIENT WILL BE TRANSFERRED TO MEDICAL FLOOR WITHOUT TELEMETRY. PT WILL BE ON METOPROLOL AND DILT BID. PT WILL NEED TO TRANSITION TO ORAL ANTICOAGULANTS FOR HIS AFLUTTER. ECHO RESULTS DISCUSSED WITH PATIENT AND HIS BY DR. VILLAGOMEZ. CONTINUE TO MONITOR.
--- NOTE | 2020-06-28 10:27 | NUR ---
PICC RN IN ROOM EVALUATING PATIENT FOR POTENTIAL PICC LINE PLACEMENT. PT AGREEABLE AND WANTING PICC LINE. PT'S REMAINS IN ROOM AT THIS TIME PER PATIENT'S REQUEST. PT REMAINS ON 1 L NC AND SP02 IS 95% CURRENTLY. NIETO DRAINING YELLOW URINE. CONTINUE TO MONITOR.
--- NOTE | 2020-06-28 11:41 | NUR ---
PATIENT UP TO 5 L WHILE SLEEPING. PT'S LEAVES AT THIS TIME AND WILL RETURN LATER. TRAY WILL TRANSFER TO MEDICAL FLOOR 122 LATER THIS AFTERNOON. PT RESTING ON RIGTH SIDE WITH SP02 AT 88%. CONTINUE TO MONITOR.
--- NOTE | 2020-06-28 14:16 | NUR ---
MEDICATION DUE. THIS RN TO ROOM. PT UP TO CHAIR. FINISHED WITH LUNCH, CONSUMED ~95%, ALL BUT VEGIE TRAY. CARDIAC MONITORING DC'D PER MD ORDER. VITALS TAKEN. MEDICATION GIVEN. PT VOIDS 250ML IN URINAL, DARK YELLOW URINE. NO ADDITIONAL REQUESTS OR COMPLAINTS. PT ANTICIPATING TRANSFER TO MED/SURG AND STATES HE WOULD LIKE A SHOWER TODAY. CALL LIGHT WITHIN REACH.
--- NOTE | 2020-06-28 15:40 | NUR ---
New admit to the floor. Pt arrived to unit alert and oriented x4. Pt on 5L per nc, respirations are even and non labored. Pt denies sob and or chest pain at this time. Lower ext swelling noted; legs elevated at this time. at bedside. Pt requesting to shower here shortly. Updated pt with plan of care and orientation to room and call light. Pt verbalized his understanding and denies needs at this time. Personal supplies and call light within reach. Vital signs taken; stable.
--- NOTE | 2020-06-28 18:08 | NUR ---
PATIENT INDEPENDENT IN ROOM. VISITING WITH IN ROOM. CALL LIGHT WITHIN REACH. NO FURTHER NEEDS AT THIS TIME.
--- NOTE | 2020-06-28 19:30 | NUR ---
REPORT RECEIVED FROM DAY SHIFT RN. PT SITTING ON SIDE OF BED, ALERT AND ORIENTED. OXYGEN IN PLACE. DENIES NEEDS. WHITE BOARD UPDATED. CALL LIGHT IN REACH. SPOUSE IN ROOM.
--- NOTE | 2020-06-28 22:10 | NUR ---
EVENING ASSESSMENT COMPLETE. SCHEDULED MEDS ADMINISTERED PER EMAR. EXPIRATORY WHEEZES HEARD THROUGHOUT. PT DENIES CP OR SOB. RESPIRATIONS EVEN AND UNLABORED. O2 5L/NC IN PLACE. DENIES PAIN OR NUASEA. PT DENIES FURTHER NEEDS. CALL LIGHT IN REACH.
--- NOTE | 2020-06-28 23:25 | NUR ---
IV SL PER ORDER. RT CALLED TO ASSIST PT WITH HOME CPAP MACHINE.
--- NOTE | 2020-06-29 00:15 | NUR ---
PT RESTING IN BED WITH EYES CLOSED. CPAP IN PLACE. NAD.
--- NOTE | 2020-06-29 01:45 | NUR ---
PT REQUESTING A BREAK FROM CPAP. 5L/NC IN PLACE. PT DENIES SOB OR CP. NO NEEDS AT THIS TIME. CALL LIGHT IN REACH.
--- NOTE | 2020-06-29 03:00 | NUR ---
PT SITTING ON SIDE OF BED. SpO2 92% ON 5L/NC. HR 62. DENIES SOB OR CP. RR EVEN AND UNLABORED. NO NEEDS. CALL LIGHT IN REACH.
--- NOTE | 2020-06-29 05:42 | NUR ---
PT UP TO RECLINER. VS AND I&O COMPLETE. PT DENIES CP OR SOB. O2 5L/NC IN PLACE. RR EVEN AND UNLABORED. FRESH COFFEE AND WATER PROVIDED. BREAKFAST ORDERED. NO FURTHER NEEDS. CALL LIGHT IN REACH.
--- NOTE | 2020-06-29 08:45 | NUR ---
PT SITTING UP ON EDGE OF BED, JUST FINISHED BREAKFAST, STATES HE DID NOT SLEEP WELL, AT BEDSIDE, SCHEDULED MEDS TAKEN, STATES HE IS TAKING A SHOWER SHORTLY, O2 5L/NC. DENIES DIFFICULTY BREATHING, VOIDING QS. DENIES FURTHER NEEDS.
--- NOTE | 2020-06-29 09:45 | NUR ---
Pt in shower at my visit.
--- NOTE | 2020-06-29 09:58 | NUR ---
PATIENT UP TO SHOWER, IND, IN ROOM. LINENS CHANGED. NEW GOWN PROVIDED. CALL LIGHT IN REACH. NO FURTHER NEEDS AT THIS TIME.
[2020-06-29] MEDS ORDERED: IPRATROPIU0.2 MG/1 M INH (11:24)
[2020-06-29] MEDS ORDERED: NICOTINE PATCH1 EAC1 TD (11:25)
[2020-06-29] MEDS ORDERED: XOPENEX CO1.25 MG/0. INH (11:25)
[2020-06-29] MEDS ORDERED: WARFARIN SODIUM5 MG PO (11:26)
[2020-06-29] MEDS ORDERED: DILTIAZEM ER300 MG PO (11:27)
[2020-06-29] MEDS ORDERED: METOPROLOL SUC200 MG PO (11:27)
[2020-06-29] MEDS ORDERED: ASPIRIN EC325 MG PO (11:28)
[2020-06-29] MEDS ORDERED: PREDNISONE20 MG PO (11:30)
[2020-06-29] MEDS ORDERED: BLOOD GLUCOSE1 EAC1 MISC (11:31)
[2020-06-29] MEDS ORDERED: BLOOD GLUCOSE1 EAC8 MISC (11:32)
[2020-06-29] MEDS ORDERED: LANCETS MISC (11:33)
--- NOTE | 2020-06-29 11:56 | NUR ---
BOTH IV'S TAKEN OUT UPON RN REQUEST. [facility] INTACT, RN NOTIFIED.
--- NOTE | 2020-06-29 12:00 | NUR ---
Notified by Cesar he has completed 02 qualifier. Received Rx for Nebulizer from Dr. Mahoney and 02 order. Called and confirmed with [facility] they service both Ginger and stefanie Vences. Chart notes, prescriptions, and face sheet with current address faxed to [employer]
--- NOTE | 2020-06-29 12:38 | NUR ---
Called and confirmed with [facility] they received my fax. Reminded we are requesting 02 be delivered to the hospital for pt to use on discharge to home. Understanding stated and also discussed current address. They state understanding [place] is [place] in an [place] in [place] at this time. They will call me when auth is received with delivery time.
--- NOTE | 2020-06-29 13:12 | NUR ---
DISCHARGE INSTRUCTIONS REVIEWED WITH PT AND , VERBALIZES UNDERSTANDING OF MEDICATIONS AND FOLLOWUP APPOINTMENTS, PRECISION AGRICULTURE SPECIALIST [facility] IS WORKING ON HOME O2, PHARMACY IN TO FURTHER DISCUSS MEDICATIONS.
--- NOTE | 2020-06-29 14:19 | NUR ---
PT SITTING IN CHAIR O2 NC IN USE. PT SAYS IT IS SOMETHING NEW, HERE FROM [place] FOR WORK. WORKING TO GET O2 FOR DC LATER TODAY. GAVE BLESSING,
--- NOTE | 2020-06-29 14:50 | NUR ---
RECIEVED CALL FROM [facility] STATING XOPNENEX NOT AVAILABLE UNTIL TOMORROW. WILL DC WITH EXTRA VIALS TO COVER. SPOKE WITH CECELIA IN PHARMACY AND SHE AGREED.
--- NOTE | 2020-06-29 15:26 | NUR ---
EDUCATION GIVEN ON COPD, CHF, DM, [facility] TO CALL PT AND SCHEDULE FOLLOW UP APPOINTMENT FOR NEPHROLOGY TO FOLLOW. AND PT VERBALIZE UNDERSTANDING IF NO APPOINTMENT IS MADE THEY ARE TO CALL BACK TO [facility].
== END 2020-06-29 15:20 | disposition home or self-care (01) | DRG 291 ==
LOC: ED 12:25 → MS 17:45 → CCU 17:45 → MS 06-28 15:15
PROVIDERS: ADMIT Internal Medicine
DX: I13.0 Hypertensive heart and chronic kidney disease with heart failure and stage 1 through stage 4 chronic kidney disease, or unspecified chronic kidney disease (principal); I50.31 Acute diastolic (congestive) heart failure; J96.22 Acute and chronic respiratory failure with hypercapnia; J96.21 Acute and chronic respiratory failure with hypoxia; N18.4 Chronic kidney disease, stage 4 (severe); J44.1 Chronic obstructive pulmonary disease with (acute) exacerbation; I48.92 Unspecified atrial flutter; E11.22 Type 2 diabetes mellitus with diabetic chronic kidney disease; E11.65 Type 2 diabetes mellitus with hyperglycemia; G47.33 Obstructive sleep apnea (adult) (pediatric); I35.1 Nonrheumatic aortic (valve) insufficiency; E78.5 Hyperlipidemia, unspecified; F17.210 Nicotine dependence, cigarettes, uncomplicated
CPT/HCPCS: 36415; 36600; 51702; 71045; 76770; 80053; 80061; 80069; 81001; 82570; 82803; 83036; 83605; 83735; 83880; 84300; 84484; 84540; 85025; 85379; 85610; 93005; 93010; 93306; 94640; 94644; 94660; 94664; 94760; 94761; 99285-25; 99406; C9803; J1650; J1815; J1940; J2920; J2930; J3475; J7121; J7512

== ENCOUNTER 2020-08-03 16:27 | Emergency (ER) | payer BC ==
[~2020-08-03] VITALS: Ht 182.9 cm; Wt 93.0 kg
--- OUTSIDE RECORDS SUMMARY | ~2020-08-03 | XMS | Encounter Summary ---
Demographics + + + | Address | [address] | | | [place] [address] | + + + | Home Phone | | + + + | Preferred Language | Unknown | + + + | Marital Status | Single | + + + | Latter Day Affiliation | Unknown | + + + | Race | White | + + + | Ethnic Group | Not or | + + + Author + + + | Organization | Unknown | + + + | Address | Unknown | + + + | Phone | Unavailable | + + + Support + + +---------+ + | Name | Relationship | Address | Phone | + + +---------+ + | Karma Ortiz | ECON | Unknown | | + + +---------+ + Care Team Providers + +------+ + | Care Demolition Worker Name | Role | Phone | + +------+ + | No Pcp Per Patient | PCP | Unavailable | + +------+ + Encounter Details +--------+--------+ + + + | Date | Type | Department | Care Team | Description | +--------+--------+ + + + | 07/20/ | Travel | | | | | 2020 | | | | | +--------+--------+ + + + Social History + +-------+ +--------+ + | Tobacco Use | Types | Packs/Day | Years | Date | | | | | Used | | + +-------+ +--------+ + | Former Smoker | | | | Quit: 02/07/2011 | + +-------+ +--------+ + + +---+---+---+ | Smokeless Tobacco: | | | | | Never Used | | | | + +---+---+---+ + + +---------+ + | Alcohol Use | Drinks/Week | oz/Week | Comments | + + +---------+ + | Not Asked | | | | + + +---------+ + + + + | Sex Assigned at | Date Recorded | | | | + + + | Not on file | | + + + + + + + | COVID-19 Exposure | Response | Date Recorded | + + + + | In the last month, have you been in contact | No / Unsure | 07/20/2020 8:47 AM | | with someone who was confirmed or | | PDT | | suspected to have Coronavirus / COVID-19? | | | + + + + documented as of this encounter Plan of Treatment Not on filedocumented as of this encounter Visit Diagnoses Not on filedocumented in this encounter"
--- OUTSIDE RECORDS SUMMARY | ~2020-08-03 | XMS | Encounter Summary ---
Demographics + + + | Address | [address] | | | [place] [address] | + + + | Home Phone | | + + + | Preferred Language | Unknown | + + + | Marital Status | Single | + + + | Jewish Affiliation | Unknown | + + + | Race | White | + + + | Ethnic Group | Not or | + + + Author + + + | Author | [facility] | + + + | Organization | [facility] | + + + | Address | Unknown | + + + | Phone | Unavailable | + + + Support + + +---------+ + | Name | Relationship | Address | Phone | + + +---------+ + | Karma Ortiz | ECON | Unknown | | + + +---------+ + Care Team Providers + +------+ + | Care Wooden Furniture Polisher Name | Role | Phone | + +------+ + | No Pcp Per Patient | PCP | Unavailable | + +------+ + Reason for Visit + + + | Reason | Comments | + + + | Follow-up visit | Medication follow up | + + + Encounter Details +--------+---------+ + + + | Date | Type | Department | Care Team | Description | +--------+---------+ + + + | 07/22/ | Office | [facility] | Eros Barber MD | Congestive heart | | 2020 | Visit | Medical Clinic | [address] | failure, unspecified | | | | Cardiology [address] | [address] | HF chronicity, | | | | [address] | [place] [address] | unspecified heart | | | | [place], [place] | [phone] | failure type (HCC) | | | | [phone] | | (Primary Dx) | | | | [phone] | | | +--------+---------+ + + + Social History + +-------+ +--------+ + | Tobacco Use | Types | Packs/Day | Years | Date | | | | | Used | | + +-------+ +--------+ + | Former Smoker | | | | Quit: 06/27/2020 | + +-------+ +--------+ + + +---+---+---+ | Smokeless Tobacco: | | | | | Never Used | | | | + +---+---+---+ + + +---------+ + | Alcohol Use | Drinks/Week | oz/Week | Comments | + + +---------+ + | Yes | | | | + + +---------+ + + + + + | Alcohol Habits | Answer | Date Recorded | + + + + | How often do you have a drink containing | 4 or more times a week | 07/22/2020 | | alcohol? | | | + + + + | How many drinks containing alcohol do you | 1 or 2 | 07/22/2020 | | have on a typical day when you are | | | | drinking? | | | + + + + | How often do you have six or more drinks on | Never | 07/22/2020 | | one occasion? | | | + + + + + + + | Sex Assigned at | Date Recorded | | | | + + + | Not on file | | + + + + + + + | COVID-19 Exposure | Response | Date Recorded | + + + + | In the last month, have you been in contact | No / Unsure | 07/22/2020 7:46 AM | | with someone who was confirmed or | | PDT | | suspected to have Coronavirus / COVID-19? | | | + + + + documented as of this encounter Last Filed Vital Signs + + + + + | Vital Sign | Reading | Time Taken | Comments | + + + + + | Blood Pressure | 144/60 | 07/22/2020 8:02 AM | | | | | PDT | | + + + + + | Pulse | 56 | 07/22/2020 8:02 AM | | | | | PDT | | + + + + + | Temperature | - | - | | + + + + + | Respiratory Rate | - | - | | + + + + + | Oxygen Saturation | 89% | 07/22/2020 8:02 AM | | | | | PDT | | + + + + + | Inhaled Oxygen | - | - | | | Concentration | | | | + + + + + | Weight | 92.7 kg (204 lb 6.4 | 07/22/2020 8:02 AM | dressed with shoes | | | oz) | PDT | | + + + + + | Height | 182.9 cm (6') | 07/22/2020 8:02 AM | | | | | PDT | | + + + + + | Body Mass Index | 27.72 | 07/22/2020 8:02 AM | | | | | PDT | | + + + + + documented in this encounter Patient Instructions Patient Instructions Eros Barber MD - 07/22/2020 8:00 AM PDT1. Heart failure with pres erved EF. LVEF 60% - 06/2020 2. Atrial flutter. Typical. [id number] - 3 (CHF, HTN, DM) - Continues to have paroxysms of atrial flutter. Grossly asymptomatic. Ventricular rate in clinic today ~ 100/min. - On high dose AVN blocking agents - metoprolol succinate 200 mg daily and diltiazem 300 m g daily. Primary option at this time is a CTI-ablation. We discussed trying to arrange one i [facility] within the next few weeks. He would prefer to go back to [place] to have it done. Logi stics of doing an ablation in [place] also complicated by the fact that he has an upcoming EGD, c olonoscopy for recent GI bleed. - Given LV function is preserved, patient is grossly asymptomatic and appears ventricular rates are usually well controlled while at home, it would be reasonable to hold off on an ab lation at this time. Recommended to visit with a stitch burnisher soon after returning to [place]. - start eliquis 5 mg twice daily - TSH, ischemic eval recommended 3. ?bicuspid aortic valve. Moderate AI - 06/2020. 4. Pulmonary hypertension. RVSP 47 - 8. ?WHO class III 5. COPD 6. HTN 7. T2DM 8. CKD IV - creat 1.6 documented in this encounter Progress Notes Cadence Bradshaw MA - 07/22/2020 8:00 AM PDTPatient did not bring medications to office vis it today, medications were verbally verified. Review of Systems Constitution: Negative for decreased appetite, malaise/fatigue, weight gain and weight loss . HENT: Negative for congestion and tinnitus. Cardiovascular: Negative for chest pain, dyspnea on exertion, irregular heartbeat, leg swel ling, near-syncope, palpitations and syncope. Respiratory: Negative for cough and shortness of breath. Hematologic/Lymphatic: Negative for bleeding problem. Does not bruise/bleed easily. Gastrointestinal: Negative for heartburn and nausea. Neurological: Negative for dizziness and light-headedness. Eros Henderson MD - 0 07/22/2020 8:00 AM PDT [facility] General Cardiology Follow-up Current Cardiovascular Conditions: 1. Heart failure with preserved EF. LVEF 60% - 06/2020 2. Atrial flutter. Typical. [id number] - 3 (CHF, HTN, DM) 3. ?bicuspid aortic valve. Moderate AI - 06/2020. 4. Pulmonary hypertension. RVSP 47 - 8. ?WHO class III 5. COPD 6. HTN 7. T2DM 8. CKD IV - creat 1.6 I have had the pleasure of seeing Jeremias Trenton White, a patient of No Pcp Per PATIENT. he is a 55 y.o. that presents in follow-up today. Portions of the HPI were obtained from a cholo guerrier review of the available records and are summarized below. He was last seen in general ca rdiology clinic on 07/20/20. No significant change in symptoms since we talked on 07/20/20. Feels back to baseline. Does g et some SOB with exertion, but says this has been chronic. He informs me that after his ED presentation in [place] he was started on warfarin. Had s upratherapeutic INRs - up to 6, with GI bleed. The patient denies PND/orthopnea, worsening swelling, chest pain, dizziness, lightheadednes s, fainting, fever. No ER visits or hospitalizations since last being seen here. Overall goo d compliance with medications and salt/fluid restriction. NYHA FC IIB Checks HR daily. HR has mostly been < 80. 2 days ago 150/min. Patient Active Problem List Diagnosis Date Noted Typical atrial flutter (HCC) 07/20/2020 Acute on chronic heart failure with preserved ejection fraction (HCC) 07/20/2020 Type 2 diabetes mellitus (HCC) 07/20/2020 Essential hypertension 07/20/2020 Nonrheumatic aortic valve insufficiency 07/20/2020 CKD (chronic kidney disease) stage 4, GFR 15-29 ml/min ([facility]) 07/20/2020 No past surgical history on file. No Known Allergies Social History Socioeconomic History Marital status: Single Spouse name: Not on file Number of children: Not on file Years of education: Not on file Highest education level: Not on file Occupational History Not on file Social Needs Financial resource strain: Not on file Food insecurity Worry: Not on file Inability: Not on file Transportation needs Medical: Not on file Non-medical: Not on file Tobacco Use Smoking status: Former Smoker Quit date: 02/07/2011 Years since quittin.4 Smokeless tobacco: Never Used Substance and Sexual Activity Alcohol use: Not on file Drug use: Not on file Sexual activity: Not on file Lifestyle Physical activity Days per week: Not on file Minutes per session: Not on file Stress: Not on file Relationships Social connections Talks on phone: Not on file Gets together: Not on file Attends adventist service: Not on file Active member of club or organization: Not on file Attends meetings of clubs or organizations: Not on file Relationship status: Not on file Other Topics Concern Not on file Social History Narrative Not on file Review of Systems: Constitution: Negative for decreased appetite, malaise/fatigue, weight gain and weight loss . HENT: Negative for congestion and tinnitus. Cardiovascular: Negative for chest pain, dyspnea on exertion, irregular heartbeat, leg swel ling, near-syncope, palpitations and syncope. Respiratory: Negative for cough and shortness of breath. Hematologic/Lymphatic: Negative for bleeding problem. Does not bruise/bleed easily. Gastrointestinal: Negative for heartburn and nausea. Neurological: Negative for dizziness and light-headedness. Current Medications Include: Current Medication List Name Sig APIXABAN 5 MG TABLET Take 1 tablet by mouth two times daily. DILTIAZEM ER 300 MG CAPSULE,24 HR,EXTENDED RELEASE Take 1 capsule by mouth once daily. FENOFIBRATE 160 MG TABLET Take 160 mg by mouth once daily. ADVAIR HFA 115 MCG-21 MCG/ACTUATION AEROSOL INHALER Inhale 2 puffs by mouth two times daily . GLIPIZIDE ER 2.5 MG TABLET, EXTENDED RELEASE 24 HR Take 1 tablet by mouth once daily. IPRATROPIUM BROMIDE 0.02 % SOLUTION FOR INHALATION INHALE 1 VIAL IN NEBULIZER 4 TIMES DAILY FOR COPD METOPROLOL SUCCINATE ER 200 MG TABLET,EXTENDED RELEASE 24 HR Take 200 mg by mouth once williams y. TORSEMIDE 20 MG TABLET 2 tablets in the morning and 1 tablet at night Physical Examination: BP 144/60 (BP Location: Left upper arm, Patient Position: Sitting) | Pulse 56 | Ht 1.829 m (6') | Wt 92.7 kg (204 lb 6.4 oz) Comment: dressed with shoes | SpO2 (!) 89% | BMI 27.72 kg/m | BSA 2.17 m HEENT: Normal Neck: Normal JVP, no bruits, no thyromegaly or LAD Lungs: CTA, normal excursion CV: Normal PMI. tachycardic with normal S1, S2. no gallops or heaves. No murmur, rub or gallop. Abd: NT/ND No masses or HSM. No bruits. Ext: No cyanosis. trace pedal edema Normal pulses. Neuro: Grossly normal motor, sensory, CN exam. Skin: Normal EC07/22/20 Atrial flutter. Variable block. Ventricular rate ~ 100/min. 06/26/20 Regular, narrow-complex tachycardia, likely typical, CTI-dependant AFL with 2:1 block. Vent ricular rate ~ 150/min. RAD. 06/26/20 NSR, RAD, biatrial enlargement, incomplete RBBB ECHOCARDIOGRAM: 02/21/2011 1. The left ventricular cavity size is normal. 2. The LV systolic function is normal. 3. Visually estimated left ventricular ejection fraction is 55-60%. 4. The aortic valve is seneca bicuspid and thickened. 5. Mild to moderate aortic regurgitation. 06/27/20 Normal biventricular function. RV mildly dilated. Mod RA enlargement Moderate AI Estimated RVSP 47 IMPRESSION/PLAN (as discussed with the patient) 1. Heart failure with preserved EF. LVEF 60% - 06/2020 2. Atrial flutter. Typical. [id number] - 3 (CHF, HTN, DM) - Continues to have paroxysms of atrial flutter. Grossly asymptomatic. Ventricular rate in clinic today ~ 100/min. - On high dose AVN blocking agents - metoprolol succinate 200 mg daily and diltiazem 300 m g daily. Primary option at this time is a CTI-ablation. We discussed trying to arrange one i [facility] within the next few weeks. He would prefer to go back to [place] to have it done. Logi stics of doing an ablation in [place] also complicated by the fact that he has an upcoming EGD, c olonoscopy for recent GI bleed. - Given LV function is preserved, patient is grossly asymptomatic and appears ventricular rates are usually well controlled while at home, it would be reasonable to hold off on an ab lation at this time. Recommended to visit with a stitch burnisher soon after returning to [place]. - start eliquis 5 mg twice daily - TSH, ischemic eval recommended 3. ?bicuspid aortic valve. Moderate AI - 06/2020. 4. Pulmonary hypertension. RVSP 47 - 06/27/20. ?WHO class III 5. COPD 6. HTN 7. T2DM 8. CKD IV - creat 1.6 I spent 23 min with this patient and greater than 50% of the time was spent on counseling a nd disease management. Issues that were addressed included discussion regarding diagnostic r esults, impression, and/or recommended diagnostic studies; prognosis; risks and benefits of management option; instruction for management options; risk factor reduction. Eros Barber MD [facility] [place], [facility], [place], [place] Office: [phone] documented in this enc ounter Plan of Treatment Not on filedocumented as of this encounter Procedures + +--------+ + + + | Procedure Name | Priori | Date/Time | Associated Diagnosis | Comments | | | ty | | | | + +--------+ + + + | EKG/ECG GLOBAL | Routin | 07/22/2020 | Congestive heart | Results for this | | | e | | failure, unspecified | procedure are in the | | | | | HF chronicity, | results section. | | | | | unspecified heart | | | | | | failure type (HCC) | | + +--------+ + + + documented in this encounter Results EKG/ECG GLOBAL (07/22/2020) + + + | Narrative | Performed At | + + + | | | + + + documented in this encounter Visit Diagnoses + + | Diagnosis | + + | Congestive heart failure, unspecified HF chronicity, unspecified heart failure type | | (HCC) - Primary | + + documented in this encounter"
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
--- OUTSIDE RECORDS SUMMARY | ~2020-08-03 | XMS | Encounter Summary ---
Demographics + + + | Address | [address] | | | [place] [address] | + + + | Home Phone | | + + + | Preferred Language | Unknown | + + + | Marital Status | Single | + + + | Sabianism Affiliation | Unknown | + + + | Race | White | + + + | Ethnic Group | Not or | + + + Author + + + | Author | [facility] | + + + | Organization | [facility] | + + + | Address | Unknown | + + + | Phone | Unavailable | + + + Support + + +---------+ + | Name | Relationship | Address | Phone | + + +---------+ + | Karma Ortiz | ECON | Unknown | | + + +---------+ + Care Team Providers + +------+ + | Care Share Holder Name | Role | Phone | + +------+ + | No Pcp Per Patient | PCP | Unavailable | + +------+ + Reason for Visit + +--------+ + | Reason | Onset | Comments | | | Date | | + +--------+ + | Medication Refill | 03/26/ | METOPROLOL | | | 2010 | | + +--------+ + Encounter Details +--------+ + + + + | Date | Type | Department | Care Team | Description | +--------+ + + + + | 03/26/ | Telephone | Pulmonary & | David Oliveros, | Medication Refill | | 2010 | | Critical Care | [address] | (METOPROLOL) | | | | Medicine at | [address] | | | | | [facility] | [place], [place] | | | | | [address] | [address] | | | | | [address] | [phone] | | | | | [address], [facility] Floor | | | | | | [place], [place] | | | | | | [address] | | | | | | [phone] | | | +--------+ + + + [...] on file | | + + + documented as of this encounter Miscellaneous Notes Telephone Encounter - Luz Maria Schulz - 03/28/2011 11:38 AM PDTCalled pharmacy and informed them Dr. Oliveros would like Jeremias to follow with his PCP for his BP meds. elephone Encounter - Luz Maria Schulz - 9:40 AM PDT Reason for Call: Chief Complaint Patient presents with Medication Refill METOPROLOL Patient: Jeremias Morris: Home Phone Work Phone Pharmacy Preferences: No preferred pharmacy on file. Last Telephone in [facility] was on 03/01/11 with David Ivy MD. No future appointments scheduled in Pulmonary Disease. documented in this encount er Plan of Treatment Not on filedocumented as of this encounter Visit Diagnoses + + | Diagnosis | + + | CHF (congestive heart failure) Congestive heart failure, unspecified | + + | Unspecified essential hypertension | + + documented in this encounter"
--- OUTSIDE RECORDS SUMMARY | ~2020-08-03 | XMS | Encounter Summary ---
Demographics + + + | Address | [address] | | | [place] [address] | + + + | Home Phone | | + + + | Preferred Language | Unknown | + + + | Marital Status | Single | + + + | Presybeterian Affiliation | Unknown | + + + | Race | White | + + + | Ethnic Group | Not or | + + + Author + + + | Author | [facility] | + + + | Organization | [facility] | + + + | Address | Unknown | + + + | Phone | Unavailable | + + + Support + + +---------+ + | Name | Relationship | Address | Phone | + + +---------+ + | Karma Ortiz | ECON | Unknown | | + + +---------+ + Care Team Providers + +------+ + | Care Car Usher Name | Role | Phone | + +------+ + | No Pcp Per Patient | PCP | Unavailable | + +------+ + Reason for Visit + + + | Reason | Comments | + + + | New patient | New pt referred for CHF | | consultation | | + + + Consultation (Routine) +--------+--------+ + + + + | Status | Reason | Specialty | Diagnoses / | Referred By | Referred To | | | | | Procedures | Contact | Contact | +--------+--------+ + + + + | Closed | | Cardiology | Diagnoses | Mahoney, | Elisabeth | | | | | Unspecified | Lohith | MD Eros | | | | | diastolic | MD Oleksandr | [address] | | | | | (congestive) | [address] | | | | | heart | [address] | [address] | | | | | failure | [place], | [place] | | | | | Procedures | [place] [address] | [address] Phone: | | | | | [place] NEW | Phone: | [phone] | | | | | PATIENT | [phone] | Fax: | | | | | LEVEL I [place] | Fax: | [phone] | | | | | NEW PATIENT | [phone] | | | | | | LEVEL II [place] | | | | | | | NEW PATIENT | | | | | | | LEVEL III | | | | | | | [place] NEW | | | | | | | PATIENT | | | | | | | LEVEL IV [place] | | | | | | | NEW PATIENT | | | | | | | LEVEL V | | | +--------+--------+ + + + + Encounter Details +--------+ + + + + | Date | Type | Department | Care Team | Description | +--------+ + + + + | 07/20/ | Video/TeleH | [facility] | Eros Barber MD | New patient | | 2020 | ealth-Sched | [facility] | [address] | consultation (New pt | | | uled | Cardiology [address] | [address] | referred for CHF) | | | | [address] | [place] [address] | | | | | [place], [place] | [phone] | | | | | [address] | | | | | | [phone] | | | +--------+ + + + [...] + + documented as of this encounter Patient Instructions Patient Instructions Eros Barber MD - 07/20/2020 9:00 AM PDT 1. Heart failure with preserved EF. LVEF 60% - 06/2020 - Recent decompensation likely secondary to steroids for COPD exacerbation +/- CKD +/- AI +/- high dose CCB and BB - Hard to discern volume status accurately without physical exam, however, appears close t o euvolemic based on description by pt - Continue torsemide 40 mg in AM and 20 mg in PM. Has a visit with Nephrology coming up. W ill defer to them with regards to titration of diuretic dosage. 2. Atrial flutter. Typical. [id number] - 3 (CHF, HTN, DM) - Based on ambulatory heart rate recordings likely having asymptomatic paroxysms of AFL. C urrently, on high dose CCB and BB, which he appears to be tolerating reasonably. At this diamond e will continue medications without change. Recommended visiting with a cardiopulmonary technician once he is in [place]. He would be a reasonable candidate for a CTI ablation. - Start apixaban 5 mg twice daily (taken in to account kidney disease). 3. ?bicuspid aortic valve - reportedly bicuspid Ao valve on echo from 2010. Echo from 06/2020 with mention of tricusp id Ao valve and normal Ao root size. Neither echo available for personal review. Normal LV s ize and function per reports. Will require routine surveillance with an echo in 1 year. 4. Pulmonary hypertension. RVSP 47 - 06/27/20. ?WHO class III - Likely related to COPD. Will defer to PCP. 5. COPD 6. HTN - Well controlled. Continue diltiazem 300 mg daily and metoprolol succinate 200 mg daily. 7. T2DM - Would ideally be recommended to be on an GONZALO-I/ARB given CM and CKD. Will defer to Nephr ology. 8. CKD IV documented in this encounter Progress Notes Cadence Bradshaw MA - 07/20/2020 9:00 AM PDTMedications were verbally verified over the don ne. Review of Systems Constitution: Negative for decreased appetite, malaise/fatigue, weight gain and weight loss . HENT: Negative for congestion and tinnitus. Cardiovascular: Negative for chest pain, dyspnea on exertion, irregular heartbeat, leg swel ling, near-syncope, palpitations and syncope. Respiratory: Negative for cough and shortness of breath. Hematologic/Lymphatic: Negative for bleeding problem. Does not bruise/bleed easily. Musculoskeletal: Negative for back pain, joint pain and neck pain. Gastrointestinal: Negative for heartburn and nausea. Genitourinary: Negative for frequency, pelvic pain and urgency. Neurological: Negative for dizziness and light-headedness. Psychiatric/Behavioral: Negative for memory loss. The patient does not have insomnia. ros Barber MD - 0 07/20/2020 9:00 AM PDT [facility] General Cardiology Consultation VIRTUAL VISIT The visit took place via secure, synchronous audio and video technology with the provider balbina reed located at the [place] site [facility]. The patient stated they were located at the [facility] site [facility] and were in the state of [place] at the time of the virtual visit. This time includes the virtual visit [id number] time with the patient as well as time spe nt reviewing patient records, coordinating/communicating with care teams and documenting the patient visit. Current Cardiovascular Conditions: 1. Heart failure with preserved EF. LVEF 60% - 06/2020 2. Atrial flutter. Typical. [id number] - 3 (CHF, HTN, DM) 3. ?bicuspid aortic valve. Moderate AI - 06/2020. 4. Pulmonary hypertension. RVSP 47 - 06/27/20. ?WHO class III 5. COPD 6. HTN 7. T2DM 8. CKD IV I have had the pleasure of seeing Jeremias [place], a patient of No Pcp Per PATIENT. he is a 55 y.o. who presents for evaluation of HF. Portions of the HPI were obtained from a cholo guerrier review of the available records and are summarized below. 34 minutes were spent reviewin g this complex patients medical record on 07/18/20 in preparation for the this visit. Visiting [place] from [facility] for work. Over the last month had been feeling "off". No ticed being more sluggish and some exertional SOB. Went in to the ED at [place] where he w as found to be in respiratory failure with hypoxia and hypercapnia. Deemed secondary to COPD exacerbation. Notably, also in atrial flutter with ventricular rate ~ 150/min. Started on s teroids. Notably, also started on CCB and BB dose increased. D/C'd. Records from the [facility] in [place] are limited. Apparently, also found to have CKD with a creatinine ~ 1.6. Over the next few days developed significant weight gain and pedal edema requiring increasing do se of diuretics . Over the last 2 weeks weight has come back to baseline. Feels almost completely back to brent stout. No significant SOB, CP with exertion. The patient denies chest pain, dizziness, lightheadedness, fainting, fever. Overall good co mpliance with medications and salt/fluid restriction. NYHA FC IIB Measures BP at home. Prior to hospitalization systolics ran ~ 130 bpm. Since then ~ 110 sys tolic. HR - 55-90, today ~ 160/min. There are no active problems to display for this patient. No past surgical history on file. No [...] file Gets together: Not on file Attends jew service: Not on file Active member of club or organization: Not on file Attends meetings of clubs or organizations: Not on file Relationship status: Not on file Other Topics Concern Not on file Social History Narrative Not on file Smoking 1ppd till about 1 month ago Alcohol - 3-4 drinks/night No illicit drug use, particularly no cocaine, meth use FAMILY HISTORY There is no family history premature CAD or sudden cardiac . Review of Systems: Constitution: Negative for decreased appetite, malaise/fatigue, weight gain and weight loss . HENT: Negative for congestion and tinnitus. Cardiovascular: Negative for chest pain, dyspnea on exertion, irregular heartbeat, leg swel ling, near-syncope, palpitations and syncope. Respiratory: Negative for cough and shortness of breath. Hematologic/Lymphatic: Negative for bleeding problem. Does not bruise/bleed easily. Musculoskeletal: Negative for back pain, joint pain and neck pain. Gastrointestinal: Negative for heartburn and nausea. Genitourinary: Negative for frequency, pelvic pain and urgency. Neurological: Negative for dizziness and light-headedness. Psychiatric/Behavioral: Negative for memory loss. The patient does not have insomnia. Current Medications Include: Current Medication List Name [...] and 1 tablet at night Physical Examination: There were no vitals taken for this visit. No physical exam performed. EC06/26/20 Regular, narrow-complex tachycardia, likely typical, CTI-dependant AFL with 2:1 block. Vent ricular rate ~ 150/min. RAD. 06/26/20 NSR, RAD, biatrial enlargement, incomplete RBBB ECHOCARDIOGRAM: 02/21/2011 1. The left ventricular cavity size is normal. 2. The LV systolic function is normal. 3. Visually estimated left ventricular ejection fraction is 55-60%. 4. The aortic valve is [place] bicuspid and thickened. 5. Mild to moderate aortic regurgitation. 06/27/20 Normal biventricular function. RV mildly dilated. Mod RA enlargement Moderate AI Estimated RVSP 47 LABS: No results found for: NA, K, CL, BICARB, BUN, CR, GLU, CA, AST, ALT, AP, TBILI, TP, ALB, DI RBILI No results found for this basename: wbc,hb,hct,plt,mcv,rdw No results found for: NTPROBNP No results for input(s): CHOL, LDL, HDL, TRI in the last 8640 hours. No results found for: A1C No results found for: TSH IMPRESSION/PLAN (as discussed with the patient) Only limited records available from hospital in [place]. Patient is a resident of [facility] and would like to go back home at the soonest and have further cardiac workup there. Would only like immediately needed testing to be done in [place] at this time. 1. Heart failure with preserved EF. LVEF 60% - 06/2020 - Recent decompensation likely secondary to steroids for COPD exacerbation +/- CKD +/- AI +/- high dose CCB and BB - Hard to discern volume status accurately without physical exam, however, appears close t o euvolemic based on description by pt - Continue torsemide 40 mg in AM and 20 mg in PM. Has a visit with Nephrology coming up. W ill defer to them with regards to titration of diuretic dosage. 2. Atrial flutter. Typical. [id number] - 3 (CHF, HTN, DM) - Based on ambulatory heart rate recordings likely having asymptomatic paroxysms of AFL. C urrently, on high dose CCB and BB, which he appears to be tolerating reasonably. At this diamond e will continue medications without change. Recommended visiting with a cardiopulmonary technician once he is in [place]. He would be a reasonable candidate for a CTI ablation. - Start apixaban 5 mg twice daily (taken in to account kidney disease). 3. ?bicuspid aortic valve - reportedly bicuspid Ao valve on echo from 2010. Echo from 06/2020 with mention of tricusp id Ao valve and normal Ao root size. Neither echo available for personal review. Normal LV s ize and function per reports. Will require routine surveillance with an echo in 1 year. 4. Pulmonary hypertension. RVSP 47 - 06/27/20. ?WHO class III - Likely related to COPD. Will defer to PCP. 5. COPD 6. HTN - Well controlled. Continue diltiazem 300 mg daily and metoprolol succinate 200 mg daily. 7. T2DM - Would ideally be recommended to be on an GONZALO-I/ARB given CM and CKD. Will defer to Nephr ology. 8. CKD IV I spent 45 min on the call and greater than 50% of the time was spent on counseling and dis ease management. Issues that were addressed included discussion regarding diagnostic results , impression, and/or recommended diagnostic studies; prognosis; risks and benefits of manage ment option; instruction for management options; risk factor reduction. We will be sending a copy of this note and all other available records from [place] to Mr Enrique Morris's address in [place]. He will plan on visiting with cardiology there. Eros Barber MD [facility] Cardiovascular [place], [facility] [place] Office: [phone] documented in this enc ounter Plan of Treatment Not on filedocumented as of this encounter Visit Diagnoses + + | Diagnosis | + + | Congestive heart failure, unspecified HF chronicity, unspecified heart failure type | | (HCC) - Primary | + + documented in this encounter
--- OUTSIDE RECORDS SUMMARY | ~2020-08-03 | XMS | Encounter Summary ---
Demographics + + + | Address | [address] | | | [place] [address] | + + + | Home Phone | | + + + | Preferred Language | Unknown | + + + | Marital Status | Single | + + + | Episcopalian Affiliation | Unknown | + + + | Race | White | + + + | Ethnic Group | Not or | + + + Author + + + | Author | [facility] | + + + | Organization | [facility] | + + + | Address | Unknown | + + + | Phone | Unavailable | + + + Support + + +---------+ + | Name | Relationship | Address | Phone | + + +---------+ + | Karma Ortiz | ECON | Unknown | | + + +---------+ + Care Team Providers + +------+ + | Care Inspector Cold Working Name | Role | Phone | + [...] | Encounter | [facility] at [facility] | [facility] [address] [facility] | | | | | [address] | [facility] | | | | | [address] | [place] [address] | | | | | [address], [address] [place] [address] | | | | | | [place], [place] | | | | | | [address] | | | | | | [phone] | | | +--------+ + + + [...] + + documented as of this encounter Procedure Xochitl Herron - 02/23/2011 5:16 PM PDTAssociated Order(s): SPIROMETRY BEFORE / AFTER BRON CHODIL, PULM FUNCTION LAB; SPIROMETRY BEFORE / AFTER BRONCHODIL, PULM FUNCTION LAB documented in this encou nter Plan of Treatment Not on filedocumented as [...] BRONCHODIL, | e | 11:10 AM | ([facility]) | procedure are in the | | [...] + + + + + + | MBP68-53% | 0.72 | 3.74 L/sec | [facility] | | | PRE | | | SPECIAL | | | | | | DIAGNOSTICS | | | | | | - | | | | | | PULMONARY | | | | | | FUNCTION | | + + + + + + | NGJ30-18% | 19 | % | [facility] | | | PRE (%REF) | | | SPECIAL | | | | | | DIAGNOSTICS | | | | | | - | | | | | | PULMONARY | | | | | | FUNCTION | | + + + + + + | VSN81-21% | 0.84 | 3.74 L/sec | [facility] | | | POST | | | SPECIAL | | | | | | DIAGNOSTICS | | | | | | - | | | | | | PULMONARY | | | | | | FUNCTION | | + + + + + + | BZR49-30% | 23 | % | [facility] | [...] [facility] | | | INTERPRETAT | ID# [id number] | | SPECIAL | | | ION [...] | | | | | | | Registration Clerk: Elias | | | | | | Maris DWYER Diagnosis: | | | | | | [...] Order# | | | | | | [id number] | | | | | | | [...] | | | | | | | 74FQJ78-42% L/sec | | | | | | 3.74 1.65 0.72 | | | | | | 19 0.84 | | | | | | 23 | | | | | | [id number] L/sec | | | | | | 0.72 | | | | | | 0.98 | | | | | | | | | | | | 36PEF | | | | | | L/sec 10.24 2.40 | | | | | | 4.30 42 | | | | | | 4.90 48 | | | | | | 68LLS63% L/sec | | | | | | [...] | | | | | Page 1Name: ELIAS MCGEE | | | | | | MARK ID: [id number] | | | | | | Date: [...] | | | | | of 12% [email or web address] from | | | | | | [...] | + + + + + | [facility] | [address] | [place] | | | DIAGNOSTICS - | [address] | [address] | | | PULMONARY FUNCTION | | | | + + + + + documented in this encounter Visit Diagnoses + + | Diagnosis | + + | Other emphysema (HCC) Other emphysema | + + documented in this encounter"
--- OUTSIDE RECORDS SUMMARY | ~2020-08-03 | XMS | Encounter Summary ---
Demographics + + + | Address | [address] | | | [place] [address] | + + + | Home Phone | | + + + | Preferred Language | Unknown | + + + | Marital Status | Single | + + + | Taoism Affiliation | Unknown | + + + | Race | White | + + + | Ethnic Group | Not or | + + + Author + + + | Author | [facility] | + + + | Organization | [facility] | + + + | Address | Unknown | + + + | Phone | Unavailable | + + + Support + + +---------+ + | Name | Relationship | Address | Phone | + + +---------+ + | Karma Ortiz | ECON | Unknown | | + + +---------+ + Care Team Providers + +------+ + | Care Bmet Name | Role | Phone | + +------+ + | No Pcp Per Patient | PCP | Unavailable | + +------+ + Reason for Referral Diagnostic Testing (Routine) +--------+--------+ + + + + | Status | Reason | Specialty | Diagnoses / | Referred By | Referred To | | | | | Procedures | Contact | Contact | +--------+--------+ + + + + | Closed | | Cardiology | Diagnoses | Moore, | Car Echo | | | | | CHF | MD Jayshree | [facility] [address] | | | | | (congestive | [address] | | | | | heart | [address] | | | | | failure) | Seng | [address]win | | | | | (HCC) | [place], [place] | Building, 2nd | | | | | Unspecified | [address] | floor | | | | | essential | Phone: | [place], [place] | | | | | hypertension | [phone] | [address] | | | | | Procedures | Fax: | Phone: | | | | | | [phone] | [phone] | | | | | TRANSTHORACI | | | | | | | C | | | | | | | ECHOCARDIOGR | | | | | | | AM, ADULT | | | +--------+--------+ + + + + Reason for Visit + + + | Reason | Comments | + + + | New patient | | | consultation | | + + + Consultation (Urgent) +--------+--------+ + + + + | Status | Reason | Specialty | Diagnoses / | Referred By | Referred To | | | | | Procedures | Contact | Contact | +--------+--------+ + + + + | Closed | | Pulmonary | Diagnoses | Keith, | Lee, | | | | Disease | Pleural | Mark Zelaya MD | MD Jayshree | | | | | effusion | [place] | [address] | | | | | | NEUROSURGERY | [address] | | | | | | & SPINE | [address] [place], | | | | | | [address] | [place] | | | | | | [address] | [address] | | | | | | [place] | Phone: | | | | | | [address] | [phone] | | | | | | Phone: | Fax: | | | | | | [phone] | [phone] | | | | | | Fax: | | | | | | | [phone] | | +--------+--------+ + + + + Encounter Details +--------+---------+ + + + | Date | Type | Department | Care Team | Description | +--------+---------+ + + + | 02/21/ | Office | Pulmonary & | David Oliveros, | CHF (congestive | | 2010 | Visit | Critical Care | [address] | heart failure) | | | | Medicine at | [address] | ([facility]); Other | | | | [facility] | [place], [place] | emphysema ([facility]); | | | | [address] | [address] | Unspecified | | | | [address] Physician's | [phone] | essential | | | | Pavilion, 3rd Floor | | hypertension | | | | [place], [place] | | | | | | [address] | | | | | | [phone] | | | +--------+---------+ + + + [...] in this encounter Patient Instructions Patient Instructions Arlin Mckeon MD, David - 02/21/2011 10:08 AM PDTYou have several thi ngs that need your attention 1. You have symptoms of congestive heart failure that are very likely related to uncontroll ed high blood pressure. (It was verified 3 times here in the office and was consistently miguel und 160/90). You need to start medications for this. We will start you on two medications an d will give you one month supply for them. 2. You need to establish with a primary care provider that can assume care of you. 3. You need to have follow up of labs in 1 week. I will give you the order and they should be sent to me. Please call me if you have not heard from me within 48 hours of getting the l abs. 4. You have lymph nodes in the chest that do not appear to be very worrisome but will requi re follow up likely in the form of a CAT scan of the chest in 1 year. 5. Please measure your blood pressure either in supermarket/pharmacy or buy a monitor in [facility] pharmacy and keep a log of 3 measurements per week and take to PCP. 6. I will call you with the results of the ultrasound (echo) of your heart and your pulmona ry function tests. Please call if you have questions. documented in this encounter Progress Notes Jayshree Moore MD - 03/03/2011 4:11 PM PDTI have seen patient with Dr. Oliveros. I agree with plans. I had discussed patient by phone with his doctor a week or so earlier that [facility] ed the referral. 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 He moves around [place] various jobs. No wheeze, cough, fever, chills. He has hyper tension. He has been using nebulized albuterol for the symptoms. No known MA. He smokes ciga rettes including 35 pacy years, drinks 2 beers/day. No ED visits and no hospitalizations for this problem. He has continued to work regularly. On exam pleasant man, no respiratory dist ress, regular heart rhythm, elevated BP check 3 times, increased JVP, crackles bases lungs 1 /3 way up, no murmur, 1 plus edema plus stasis changes distal legs. He has leukocytosis, sli ghtly elevated Hb, low normal albumin, EKG with hypervoltage, LAE, MICHAEL. Chest xray shows cor enlarged, venous congestion, plump hilae, left pleural effusion. Chest CT shows no PE, UL e mphysema, adenopathy mediastinum, bibasilar atelectasis and small pleural effusions. Spirome try shows severe obstruction and restriction. ECHO repoprt says normal LV and estimated EF Main diagnosis is congestive heart failure in setting uncontrolled hypertension by symptoms , exam, chest imaging. I am aware ECHO. He probably also has COPD by symptoms, CT, and jung metry. I think mediastinal adenopathy non-specific. We shall start by diuresis and attempt control hypertension with a beta kenya. May need b ronchoactive medication later. He will need F/U in his work area with new medications presc ribed. I discussed issues with patient and answered questions. I also discussed heredia importan ce stop smoking cigarettes. He seemed to understand the importance. Jon Mckeon MD, David - 02/21/2011 8:29 AM PDT New Patient Pulmonary consultation Date: 02/21/2011 Primary care provider: No Pcp Per PATIENT NO PCP PER PATIENT Referring provider: [facility] [address] [place] [address] Elias Morris is a 45 y.o. male was referred to pulmonary clinic for the evaluation of bilateral pleural effusion and shortness of breath.. Source of information: Patient and outside medical records. History of Present Illness: Elias is a pleasant 45 year old male who comes to the pulmonary clinic after being referred to us from ER in [facility] where he was se en on 02/13/2011 due to worsening shortness of breath. He had workup including cardiac enzyme s that were negative, EKG showing bilateral atrial enlargement with no changes in the ST seg ment or t abnormalities, negative urine toxicology screen, CT angiogram with evidence of vasquez ateral pleural effusions and mediastinal lymphadenopathies. He was discharged home with inha led bronchodilators and was referred to us after discussion with Dr. Moore. The patient says he has history of shortness of breath for the last 4 months that has gotte n progressively worse and more pronounced during the last week. He complains of orthopnea an d paroxysmal nocturnal dyspnea also for the same amount of time. Has some cough mostly in th e morning with no significant production of sputum. Denies any lower extremity swelling. No hemoptysis. Has not had any pulmonary infections for several years and denies taking any rec ent antibiotics. Has never been prescribed inhalers except for the ones detailed above. He d oes say he has felt mild improvement of the shortness of breath with inhalers. Last had albu terol the morning of the appt at 7AM. Past Medical History: 1. Hypertension. However does not take any medication for it. First new about it around 1 y ear ago. Denies DM/CAD/DVT/TIA/strokes/DVT/cancer/lymphoma Past Surgical History: Non contributory Medications No medications as outpatient. Allergies: Review of patient's allergies indicates not on file. Social History: The patient is single and lives in [place], [place]. -Tobacco history: History Smoking status Not on file Smokeless tobacco Not on file -Occupational/ history: Never served in the . Originally from 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 He has worked several periods of 6 - 8 months in [place] for the last 3 -4 years. He has also been down in [place] in [facility] and was also working in [place] for the same reason. Cuong lakhani here in [place] lives with significant other friend who is with him in the examining room. 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 -Hobbies: None that involve exposure to fumes/irritants/ -Travel History: see above -Animal exposures: Has 1 dog and 1 cat in [place]. None here. -Tuberculosis exposure: Denies Family History: No family history on file. ROS: Denies any recent weight gain or weight loss. Physical Exam: There were no vitals taken for this visit. General: No acute distress, normal appearance MARILYN: Normocephalic, PERRLA, EOMI, external ears without lesions. Nares: No evidence of nasal erythema, polyps, purulence, congestion or septal deviation. Throat: No erythema, exudate, or tonsillar enlargement Neck: elevated jugular veins 3+ Lungs: crackles in both bases with no wheezing. Cardiac:regular rate and rhythm No murmurs, rubs or gallops. Abdomen: Normal abdominal bowel sounds; no evidence of hepatosplenomegaly. Non-tender, non -distended. Extremities: bilateral 1+ lower extremity edema Musculoskeletal: No obvious joint deformities noted. Neurologic: Exam grossly non-focal. Skin: No evidence of rash or skin changes. Lymph nodes: No other lymphadenopathy detected. Labs: Has CBC from outside hospital ER with a white count of 12.2 with no eosinophils. Normal hem oglobin and hematocrit. Normal platelets. LFT's within normal limits. D dimer was positive a t 313. Chemistry profile with normal electrolytes. Radiology: Review of CT shows mediastinal lymphadenopathies of uncertain significance present in close proximity of the bronchus intermedius as well pre tracheal, right hilar and infrahilar arou nd 2cm diameter. Also bilateral pleural effusion with underlying atelectatic lung. Pulmonary Function Tests: FEV1 1.62 (39%) FVC 2.81 (52%) ratio of 58 with no reversibility consistent with severe obs tructive physiology Flow-volume loops were reviewed. Results are consistent with obstructive lung disease. Consultation Findings: Elias is a pleasant 45 year old male who comes to the Pulmonary [facility] referred by ER in [place] for newly diagnosed bilateral pleural effusions in the se tting of shortness of breath and orthopnea/paroxysmal nocturnal dyspnea. Also found to have some adenopathies in mediastinum of uncertain significance. Has no primary care provider and takes no medications. Has been diagnosed with hypertension for several years but has opted not to treat it. Had same day echocardiogram showing normal ejection fraction with mild to m oderate mitral regurgitation and bicuspid aortic valve with normal estimated right sided pre ssures. Also pulmonary function tests showing evidence of severe obstruction. Although the l atter would explain shortness of breath it would not explain bilateral pleural effusions hung ng with PND/orthopnea. Echocardiogram is particularly inaccurate for right sided pressures a s well as not always accurate in assessing diastolic dysfunction. Also patient has valvulopa thy. I still believe patients symptoms are at least in part related to CHF and uncontrolled blood pressure. He was started on metoprolol and hydrochlorothiazide and told to follow his BP. Will repeat labs on the - 02 March to monitor renal function and sodium. Recommendations: 1. Establish with PCP in his area 2. Monitor BP as outpatient and keep log to take to PCP 3. Start metoprolol and HCTZ for BP control. 4. Consider bronchodilator either with LABA or tiotropium plus rescue inhaler. Patient was seen and examined with Dr. Moore. We spent 65 min in his care more than 50% of which was spent in face to face discussion and counseling. DAVID MCKEON MD SIZE ROLLER OPERATOR [address] [facility] Mailcode: [id number] [address] [phone] signed by David Mckeon MD at 02/28/2011 7:42 PM PDTdocu mented in this encounter Miscellaneous Notes Scan - Other, Faculty - 03/03/2011 12:00 AM PDTAssociated Order(s): LAB REPORTS can - Unknown - 011 12:00 AM PDT Scan - Other, Faculty - 02/13/2011 12:00 AM PDT can - Unknown - 011 12:00 AM PDTAssociated Order(s): OUTSIDE CARDIOLOGY Scan - Other, Faculty - 02/13/2011 12:00 AM PDT can - Other, Faculty - 02/13/2011 12:00 AM PDT documented in this encou nter Plan of Treatment + +------+--------+ + + | Name | Type | Priori | Associated Diagnoses | Order Schedule | | | | ty | | | + +------+--------+ + + | TRANSTHORACIC | ECG | Routin | CHF (congestive | Ordered: 02/21/2011 | | ECHOCARDIOGRAM, | | e | heart failure) ([facility]) | | | ADULT | | | Unspecified | | | | | | essential | | | | | | hypertension | | + +------+--------+ + + documented as of this encounter Procedures + +--------+ + + + | Procedure Name | Priori | Date/Time | Associated Diagnosis | Comments | | | ty | | | | + +--------+ + + + | LAB REPORTS | | 03/03/2011 | | Results for this | | | | 12:00 AM | | procedure are in the | | | | PDT | | results section. | + +--------+ + + + | EJECTION FRACTION | Routin | 02/21/2011 | | Results for this | | | e | 1:15 PM | | procedure are in the | | | | PDT | | results section. | + +--------+ + + + | EJECTION FRACTION | Routin | 02/21/2011 | | Results for this | | | e | 1:15 PM | | procedure are in the | | | | PDT | | results section. | + +--------+ + + + | OUTSIDE CARDIOLOGY | | 02/13/2011 | | Results for this | | | | 12:00 AM | | procedure are in the | | | | PDT | | results section. | + +--------+ + + + documented in this encounter Results LAB REPORTS (03/03/2011 12:00 AM PDT) + + + | Narrative | Performed At | + + + | | | + + + + + | Procedure Note | + + | Other, Faculty - 03/03/2011 12:00 AM PDT | | | + + EJECTION FRACTION (02/21/2011 1:15 PM PDT) + + + + + + | Component | Value | Ref Range | Performed | Pathologist | | | | | At | Signature | + + + + + + | EJECTION | 55 - 60%Comment: EF | | [facility] | | | FRACTION | Recorded from | | OF | | | | Transthoracic | | CARDIOLOGY | | | | Echocardiogram | | | | + + + + + + | BIPLANE, EF | 60.7 | | [facility] | | | | | | OF | | | | | | CARDIOLOGY | | + + + + + + + + | Specimen | + + | | + + + + + + + | Performing | Address | City/State/Zipcode | Phone Number | | Organization | | | | + + + + + | [facility] | [address] | [place], [place] | | | CARDIOLOGY | [address] | [address] | | + + + + + EJECTION FRACTION (02/21/2011 1:15 PM PDT) + + + + + + | Component | Value | Ref Range | Performed | Pathologist | | | | | At | Signature | + + + + + + | EJECTION | 55 - 60%Comment: EF | | [facility] | | | FRACTION | Recorded from | | OF | | | | Transthoracic | | CARDIOLOGY | | | | Echocardiogram | | | | + + + + + + | BIPLANE, EF | 60.7 | | [facility] | | | | | | OF | | | | | | CARDIOLOGY | | + + + + + + + + | Specimen | + + | | + + + + + + + | Performing | Address | City/State/Zipcode | Phone Number | | Organization | | | | + + + + + | [facility] | [address] | [place], [place] | | | CARDIOLOGY | [address] | [address] | | + + + + + SPIROMETRY BEFORE / AFTER BRONCHODIL, PULM FUNCTION [...] + + + + + + | KCZ95-61% | 0.72 | 3.74 L/sec | [facility] | | | PRE | | | SPECIAL | | | | | | DIAGNOSTICS | | | | | | - | | | | | | PULMONARY | | | | | | FUNCTION | | + + + + + + | IDS86-63% | 19 | % | [facility] | | | PRE (%REF) | | | SPECIAL | | | | | | DIAGNOSTICS | | | | | | - | | | | | | PULMONARY | | | | | | FUNCTION | | + + + + + + | VLV90-70% | 0.84 | 3.74 L/sec | [facility] | | | POST | | | SPECIAL | | | | | | DIAGNOSTICS | | | | | | - | | | | | | PULMONARY | | | | | | FUNCTION | | + + + + + + | TTI35-67% | 23 | % | [facility] | [...] + + | PULMONARY | Name: ELIAS MORRIS | | [facility] | | | INTERPRETAT | ID# [id number] | | SPECIAL | | | ION | Date: | | DIAGNOSTICS | | | | 02/21/11 Age: 45 | | - | | | | Gender: | | PULMONARY | | | | Male Race: | | FUNCTION | | | | | | | | | | Height(in):Physician: | | | | | | MOORE JAYSHREE | | | | | | | | | | | | Radar Mechanic: Elias | | | | | | [...] Order# | | | | | | [id number] | | | | | | | [...] | | | | | | | [id number]% L/sec | | | | | | 3.74 1.65 0.72 | | | | | | 19 0.84 | | | | | | 23 | | | | | | [id number] L/sec | | | | | | 0.72 | | | | | | 0.98 | | | | | | | | | | | | 36PEF | | | | | | L/sec 10.24 2.40 | | | | | | 4.30 42 | | | | | | 4.90 48 | | | | | | 47XUU14% L/sec | | | | | | [...] | | | | Page 1Name: ELIAS MORRIS | | | | | | MARK ID: [id number] | | | | | | Date: [...] | | | | | of 12% [id number] from | | | | | | [...] | Procedure Note | + + | Bj Faculty - 02/23/2011 5:16 PM PDT | | | + + + + + + + | Performing | Address | City/State/Zipcode | Phone Number | | Organization | | | | + + + + + | [facility] | [address] | [place], [place] | | | DIAGNOSTICS - | [address] | [address] | | | PULMONARY FUNCTION | | | | + + + + + OUTSIDE CARDIOLOGY (02/13/2011 12:00 AM PDT) + + + | Narrative | Performed At | + + + | | | + + + + + | Procedure Note | + + | 02/13/2011 12:00 AM PDT | | | + + documented in this encounter Visit Diagnoses + + | Diagnosis | + + | CHF (congestive heart failure) (HCC) Congestive heart failure, unspecified | + + | Other emphysema (HCC) Other emphysema | + + | Unspecified essential hypertension | + + documented in this encounter
--- OUTSIDE RECORDS SUMMARY | ~2020-08-03 | XMS | Encounter Summary ---
Demographics + + + | Address | [address] | | | [place] [address] | + + + | Home Phone | | + + + | Preferred Language | Unknown | + + + | Marital Status | Single | + + + | Scientologist Affiliation | Unknown | + + + | Race | White | + + + | Ethnic Group | Not or | + + + Author + + + | Author | [facility] | + + + | Organization | [facility] | + + + | Address | Unknown | + + + | Phone | Unavailable | + + + Support + + +---------+ + | Name | Relationship | Address | Phone | + + +---------+ + | Karma Ortiz | ECON | Unknown | | + + +---------+ + Care Team Providers + +------+ + | Care Egg Breaking Machine Operator Name | Role | Phone | + [...] | | CHF | MD Dave | [facility] [address] | | | | | (congestive | [address] | | | | | heart | [address] | | | | | failure) | [address] | [address] | | | | | (HCC) | [place], [place] | Building, 2nd | | | | | Unspecified | [address] | floor | | | | | essential | Phone: | [place], [place] | | | | | hypertension | [phone] | [address] | | | | | Procedures | Fax: | Phone: | | | | | | [phone] | [phone] | | | | | TRANSTHORACI | [...] | | | | | | at [facility] [address] | | | | | | [facility] | [facility] | [facility], | | | | | | [address] | | | | | | [place], [place] | | | | | | [address] | | | | | | [phone] | | | +--------+ + + + [...] to follow. documented in this enco unter Procedure Notes Bj, Faculty - 02/22/2011 10:02 AM PDTAssociated Order(s): TRANSTHORACIC ECHOCARDIOGRAM, ADULT; TRANSTHORACIC ECHOCARDIOGRAM, ADULT documented in this encou nter Plan of [...]
--- OUTSIDE RECORDS SUMMARY | ~2020-08-03 | XMS | Encounter Summary ---
Demographics + + + | Address | [address] | | | [place] [address] | + + + | Home Phone | | + + + | Preferred Language | Unknown | + + + | Marital Status | Single | + + + | Buddhism Affiliation | Unknown | + + + | Race | White | + + + | Ethnic Group | Not or | + + + Author + + + | Author | [facility] | + + + | Organization | [facility] | + + + | Address | Unknown | + + + | Phone | Unavailable | + + + Support + + +---------+ + | Name | Relationship | Address | Phone | + + +---------+ + | Karma Ortiz | ECON | Unknown | | + + +---------+ + Care Team Providers + +------+ + | Care Autographer Name | Role | Phone | + +------+ + | No Pcp Per Patient | PCP | Unavailable | + +------+ + Encounter Details +--------+ + + + + | Date | Type | Department | Care Team | Description | +--------+ + + + + | 08/01/ | Telephone | Nephrology & | Graciela Ying, | | | 2020 | | Hypertension at [facility] | [address] | | | | | [address] | [address] | | | | | Loop [facility] | [place], [place] | | | | | [facility] floor | [address] | | | | | [place], [place] | [phone] | | | | | [address] | | | | | | [phone] | | | +--------+ + + + [...] this encounter Miscellaneous Notes Telephone Encounter - Leonardo Valladares MA - 08/01/2020 11:11 AM PDTExternal lab orders faxed to [facility] at [phone]. Leonardo Valladares MA elephone Encounter - Leonardo Donahue MA - 08/01/2020 11:10 AM PDT----- Message from Graciela Ying MD sent at 07/19 8:51 AM PDT ----- Regarding: please fax external labs Hi all - pls fax external labs from today to [facility] lab in [place], [place]. Thanks, JWeiss documented in this enco unter Plan of Treatment Not on filedocumented as of this encounter Visit Diagnoses Not on filedocumented in this encounter"
--- OUTSIDE RECORDS SUMMARY | ~2020-08-03 | XMS | Encounter Summary ---
Demographics + + + | Address | [address] | | | [place] [address] | + + + | Home Phone | | + + + | Preferred Language | Unknown | + + + | Marital Status | Single | + + + | Christian Affiliation | Unknown | + + + | Race | White | + + + | Ethnic Group | Not or | + + + Author + + + | Author | [facility] | + + + | Organization | [facility] | + + + | Address | Unknown | + + + | Phone | Unavailable | + + + Support + + +---------+ + | Name | Relationship | Address | Phone | + + +---------+ + | Karma Ortiz | ECON | Unknown | | + + +---------+ + Care Team Providers + +------+ + | Care Brewmaster Name | Role | Phone | + +------+ + | No Pcp Per Patient | PCP | Unavailable | + +------+ + Reason for Visit + +--------+ + | Reason | Onset | Comments | | | Date | | + +--------+ + | Covid19 Screening | 07/29/ | | | | 2020 | | + +--------+ + Encounter Details +--------+ + + + + | Date | Type | Department | Care Team | Description | +--------+ + + + + | 07/29/ | Telephone | Nephrology & | Graciela Ying, | Covid19 Screening | | 2020 | | Hypertension at | MD [address] [facility] | | | | | [place] [address] [address] | [facility] | | | | [address] | [place], [place] | | | | | [place] [address] | [address] | | | | | [phone] | [phone] | | | | | | | [...] this encounter Miscellaneous Notes Telephone Encounter - Laura Sanabria - 07/29/2020 4:13 PM PDT Called pt to confirm appt scheduled for 08/01/2020. Future Appointments Provider Department Dept Phone Center 08/01/2020 8:00 AM Graciela Ying Nephrology & Hypertension at [place] [phone] [facility] 1. Confirmed that pt has none of these symptoms: No fever No Cough No Runny nose No Sore throat No Body aches 2. Pt aware of mask policy Laura Sanabria documented i n this encounter Plan of Treatment Not on filedocumented as of this encounter Visit Diagnoses Not on filedocumented in this encounter"
--- OUTSIDE RECORDS SUMMARY | ~2020-08-03 | XMS | Encounter Summary ---
Demographics + + + | Address | [address] | | | [place] [address] | + + + | Home Phone | | + + + | Preferred Language | Unknown | + + + | Marital Status | Single | + + + | Yazdanism Affiliation | Unknown | + + + | Race | White | + + + | Ethnic Group | Not or | + + + Author + + + | Author | [facility] | + + + | Organization | [facility] | + + + | Address | Unknown | + + + | Phone | Unavailable | + + + Support + + +---------+ + | Name | Relationship | Address | Phone | + + +---------+ + | Karma Ortiz | ECON | Unknown | | + + +---------+ + Care Team Providers + +------+ + | Care Guest Laundry Attendant Name | Role | Phone | + +------+ + | No Pcp Per Patient | PCP | Unavailable | + +------+ + Encounter Details +--------+ + + + + | Date | Type | Department | Care Team | Description | +--------+ + + + + | 07/22/ | Pharmacy | Pharmacy at [facility] | | | | 2019 | Visit | Hospital [address] | | | | | | [place], | | | | | | [place] [address] | | | | | | [phone] | | | +--------+ + + + [...]
--- OUTSIDE RECORDS SUMMARY | ~2020-08-03 | XMS | Encounter Summary ---
Demographics + + + | Address | [address] | | | [place] [address] | + + + | Home Phone | | + + + | Preferred Language | Unknown | + + + | Marital Status | Single | + + + | Zoroastrianism Affiliation | Unknown | + + + | Race | White | + + + | Ethnic Group | Not or | + + + Author + + + | Author | [facility] | + + + | Organization | [facility] | + + + | Address | Unknown | + + + | Phone | Unavailable | + + + Support + + +---------+ + | Name | Relationship | Address | Phone | + + +---------+ + | Karma Ortiz | ECON | Unknown | | + + +---------+ + Care Team Providers + +------+ + | Care Garment Liner Name | Role | Phone | + +------+ + | No Pcp Per Patient | PCP | Unavailable | + +------+ + Encounter Details +--------+ + + + + | Date | Type | Department | Care Team | Description | +--------+ + + + + | 02/21/ | Results/Int | Pulmonary & | David Oliveros, | Chronic airway | | 2010 | erpretation | Critical Care | [address] | obstruction, not | | | | Medicine at [facility] | [address] | elsewhere classified | | | | [address] | [place], [place] | (Primary Dx) | | | | [address] [facility] | [address] | | | | | [facility], [facility] | [phone] | | | | | [place], [place] | | | | | | [address] | | | | | | [phone] | | | +--------+ + + + [...] + documented as of this encounter Progress Dave Andres MD - 03/07/2011 11:43 AM PDTRefer to PFT report. documented in this encounter Plan of Treatment Not on filedocumented as of this encounter Procedures + +--------+ + + + | Procedure Name | Priori | Date/Time | Associated Diagnosis | Comments | | | ty | | | | + +--------+ + + + | AK EVAL OF | Routin | 03/07/2011 | Chronic airway | | | BRONCHOSPASM | e | 11:43 AM | obstruction, not | | | | | PDT | elsewhere classified | | + +--------+ + + + [...] + | Diagnosis | + + | Chronic airway obstruction, not elsewhere classified - Primary | + + documented in this encounter"
--- OUTSIDE RECORDS SUMMARY | ~2020-08-03 | XMS | Encounter Summary ---
Demographics + + + | Address | [address] | | | [place] [address] | + + + | Home Phone [...] Author + + + | Author | [facility] | + + + | Organization | [facility] | + + + | Address | Unknown | + + + | Phone | Unavailable | + + + Support + + +---------+ + | Name | Relationship | Address | Phone | + + +---------+ + | Karma Ortiz | ECON | Unknown | | + + +---------+ + Care Team Providers + +------+ + | Care Soil Analyst Name | Role | Phone | + +------+ + | No Pcp Per Patient | PCP | Unavailable | + +------+ + Encounter Details +--------+ + + + + | Date | Type | Department | Care Team | Description | +--------+ + + + + | 08/03/ | Telephone | [facility] | Eros Barber MD | | | 2020 | | Medical Clinic | [address] | | | | | Cardiology [address] | [address] | | | | | [address] | [place] [address] | | | | | [place] | [phone] | | | | | [address] | | | | | | [phone] | | | +--------+ + + + [...] this encounter Miscellaneous Notes Telephone Encounter - Eros Barber MD - 08/03/2020 3:09 PM PDTLow [id number] score. No high risk features. OK to stop apixaban for short periods of time without bridging. Schedule d for EGD, colonoscopy this Saturday. Restart apixaban shortly after procedure. For most proce dures stopping apixaban 2 days prior is adequate. Eros Barber MD [facility] [place], [place] Office: [phone] documented in this enc ounter Plan of Treatment Not on filedocumented as of this encounter Visit Diagnoses Not on filedocumented in this encounter"
--- OUTSIDE RECORDS SUMMARY | ~2020-08-03 | XMS | Encounter Summary ---
Demographics + + + | Address | [address] | | | [place] [address] | + + + | Home Phone | | + + + | Preferred Language | Unknown | + + + | Marital Status | Single | + + + | Methodist Affiliation | Unknown | + + + | Race | White | + + + | Ethnic Group | Not or | + + + Author + + + | Author | [facility] | + + + | Organization | [facility] | + + + | Address | Unknown | + + + | Phone | Unavailable | + + + Support + + +---------+ + | Name | Relationship | Address | Phone | + + +---------+ + | Karma Ortiz | ECON | Unknown | | + + +---------+ + Care Team Providers + +------+ + | Care Warehouse Incentive Selector Name | Role | Phone | + +------+ + | No Pcp Per Patient | PCP | Unavailable | + +------+ + Encounter Details +--------+ + + + + | Date | Type | Department | Care Team | Description | +--------+ + + + + | 08/01/ | Documentati | Nephrology & | Graciela Ying, | | | 2020 | on | Hypertension at [facility] | [address] | | | | | [address] | [address] | | | | | [address] [facility] | [place], [place] | | | | | [address] [place] [address], [address] floor | [address] | | | | | [place], [place] | [phone] | | | | | [address] | | | | | | [phone] | | | +--------+ + + + [...]
--- OUTSIDE RECORDS SUMMARY | ~2020-08-03 | XMS | Encounter Summary ---
Demographics + + + | Address | [address] | | | [place] [address] | + + + | Home Phone | | + + + | Preferred Language | Unknown | + + + | Marital Status | Single | + + + | Religion Affiliation | Unknown | + + + [...] Team Providers + +------+ + | Care Angiographer Name | Role | Phone | + +------+ + | No Pcp Per Patient | PCP | Unavailable | + +------+ + Encounter Details +--------+--------+ + + + | Date | Type | Department | Care Team | Description | +--------+--------+ + + + | 07/22/ | Travel | | | | | 2019 | | | | | +--------+--------+ + [...]
--- OUTSIDE RECORDS SUMMARY | ~2020-08-03 | XMS | Encounter Summary ---
Demographics + + + | Address | [address] | | | [place] [address] | + + + | Home Phone | | + + + | Preferred Language | Unknown | + + + | Marital Status | Single | + + + | Roman Catholic Affiliation | Unknown | + + [...] Team Providers + +------+ + | Care Funeral Service Licensee Name | Role | Phone | + +------+ + | No Pcp Per Patient | PCP | Unavailable | + +------+ + Reason for Visit + +--------+ + | Reason | Onset | Comments | | | Date | | + +--------+ + | Care Coordination | 08/03/ | | | | 2020 | | + +--------+ + Encounter Details +--------+ + + + + | Date | Type | Department | Care Team | Description | +--------+ + + + + | 08/03/ | Telephone | [facility] | Eros Barber MD | Care Coordination | | 2020 | | Medical Clinic | [address] | | | | | Cardiology [address] | [address] | | | | | [facility] [address] | [place] [address] | | | | | [place], [place] | [phone] | | | | | [address] | | | | | | [phone] | | | +--------+ + + + [...] this encounter Miscellaneous Notes Telephone Encounter - Jessica Preciado - 08/03/2020 4:08 PM PDTLeft message below from Dr Luana concepcion. Also faxed letter over to Dr Johnston officeElectronically signed by Jessica Preciado at 4:10 PM PDTTelephone Encounter - Jessica Preciado - 08/03/2020 12:20 PM PDTPt's calling back checking status of going off Eliquis for 5 days to have Colonoscopy and Endosc opy with Dr Asael Mcmillan at [facility] in [place]. Asking that letter be faxed to there office at [phone]. If you need to speak with Dr Mcmillan please call . Hoping this can be done today so he can be put on surgery schedule for Saturday would like call to advise once this is taken care of so they can call and schedule pro cedure. elephone Encounter - Lia Robreson - 08/03/2020 10:03 AM PDTReceived call from pts spouse. She states pt was s cheduled for colonoscopy and EGD for Saturday but he needs to be off of elequis for [address] ease advise on medication adjustments. documented in this encounter Plan of Treatment Not on filedocumented as of this encounter Visit Diagnoses Not on filedocumented in this encounter"
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
--- OUTSIDE RECORDS SUMMARY | ~2020-08-03 | XMS | Clinical Summary ---
Demographics + + + | Address | [address] | | | [place] [address] | + + + | Home Phone | | + + + | Preferred Language | Unknown | + + + | Marital Status | Single | + + + | Mu-Ism Affiliation | Unknown | + + + [...] Team Providers + +------+ + | Care Friend Of The Court Name | Role | Phone | + +------+ + | No Pcp Per Patient | PCP | Unavailable | + +------+ + Source Comments JOSE CARLOS is fully live on both [facility] and [facility] InPatient.[facility] Allergies No Known Allergies Medications + + + +---------+------+------+-------+ | Medication | Sig | Dispensed | Refills | Star | End | Statu | | | | | | t | Date | s | | | | | | Date | | | + + + +---------+------+------+-------+ | dilTIAZem SR 24 | Take 1 capsule by | | 0 | 08/1 | | Activ | | hour release 300 mg | mouth once daily. | | | 2/20 | | e | | oral | | | | 20 | | | | capsule,extended | | | | | | | | release 24 hr | | | | | | | + + + +---------+------+------+-------+ | Fenofibrate 160 mg | Take 160 mg by mouth | | 0 | 05/18 | | Activ | | oral tablet | once daily. | | | 06/06 | | e | | | | | | 20 | | | + + + +---------+------+------+-------+ | metoprolol | Take 200 mg by mouth | | 0 | | | Activ | | succinate 200 mg | once daily. | | | | | e | | oral tablet extended | | | | | | | | release 24 hr | | | | | | | + + + +---------+------+------+-------+ | glipiZIDE ER 2.5 | Take 1 tablet by | | 0 | 2 | | Activ | | mg oral tablet | mouth once daily. | | | 07/07 | | e | | extended release | | | | 20 | | | | 24hr | | | | | | | + + + +---------+------+------+-------+ | torsemide 20 mg | 2 tablets in the | | 0 | 08/1 | | Activ | | oral tablet | morning and 1 tablet | | | 03/07 | | e | | | at night | | | 20 | | | + + + +---------+------+------+-------+ | | Inhale 2 puffs by | | 0 | | | Activ | | Fluticasone-Salmeter | mouth two times | | | | | e | | ol (ADVAIR HFA) | daily. | | | | | | | 115-21 mcg/actuation | | | | | | | | inhalation HFA | | | | | | | | aerosol inhaler | | | | | | | + + + +---------+------+------+-------+ | ipratropium 0.02 % | INHALE 1 VIAL IN | | 0 | 08/2 | | Activ | | inhalation solution | NEBULIZER 4 TIMES | | | 420 | | e | | | DAILY FOR COPD | | | 20 | | | + + + +---------+------+------+-------+ | apixaban 5 mg oral | Take 1 tablet by | 120 | 2 | 09/0 | | Activ | | tablet | mouth two times | tablet | | 4/20 | | e | | | daily. | | | 20 | | | + + + +---------+------+------+-------+ Active Problems + + + | Problem | Noted Date | + + + | Typical atrial flutter | 07/20/2020 | + + + | Acute on chronic heart failure with preserved ejection fraction | 07/20/2020 | + + + | Type 2 diabetes mellitus | 07/20/2020 | + + + | Essential hypertension | 07/20/2020 | + + + | Nonrheumatic aortic valve insufficiency | 07/20/2020 | + + + | CKD (chronic kidney disease) stage 4, GFR 15-29 ml/min | 07/20/2020 | + + + Encounters +--------+ + + + + | Date | Type | Specialty | Care Team | Description | +--------+ + + + + | 08/03/ | Telephone | Cardiology | Eros Barber MD | | | 2019 | | | | | +--------+ + + + + | 08/03/ | Telephone | Cardiology | Eros Barber MD | Care Coordination | | 2019 | | | | | +--------+ + + + + | 08/01/ | Telephone-S | Nephrology | Graciela Ying, | New patient | | 2019 | cheduled | | | consultation | +--------+ + + + + | 08/01/ | Documentati | Nephrology | Graciela Ying, | | 2019 | on | | | | +--------+ + + + + | 08/01/ | Telephone | Nephrology | Graciela Ying, | | 2019 | | | | | +--------+ + + + + | 07/31/ | Telephone | Nephrology | Graciela Ying, | Other (appt change | 2019 | | | MD | from f2f to phone) | +--------+ + + + + | 07/29/ | Telephone | Nephrology | Graciela Ying, | Covid19 Screening | 2019 | | | MD | | +--------+ + + + + | 07/22/ | Office | Cardiology | Erso Barber MD | Congestive heart | 2019 | Visit | | | failure, unspecified | | | | | | HF chronicity, | | | | | | unspecified heart | | | | | | failure type (HCC) | | | | | | (Primary Dx) | +--------+ + + + + | 07/22/ | Pharmacy | Pharmacy Services | | | | 2019 | Visit | | | | +--------+ + + + + | 07/22/ | Travel | | | | | 2019 | | | | | +--------+ + + + + | 07/20/ | Video/TeleH | Cardiology | Eros Barber MD | New patient | | 2020 | ealth-Sched | | | consultation (New pt | | | uled | | | referred for CHF) | +--------+ + + + + | 07/20/ | Travel | | | | | 2019 | | | | | +--------+ + + + + from Last 3 Months Social History + +-------+ +--------+ + | [...] | | | + + + + Last Filed Vital Signs + [...] Health Maintenance | Due Date | Last | Comments | | | | Done | | + + + + + | Pneumococcal | | 03/22/20 | | | vaccination (2 of 3 | 2 | 11 | | | - PCV13) | | | | + + + + + | Influenza (Flu) | | | | | vaccination (#1) | 0 | | | + + + + + Procedures + +--------+ + + + | [...] | | + +--------+ + + + from Last 3 Months Results EKG/ECG GLOBAL (07/22/2020) + + + | Narrative | Performed At | + + + | | | + + + from Last 3 Months Insurance + +--------+ +--------+ [...] + +------+ | BLUE CROSS BLUE | REGENC | [id number] | Effect | [phone] | [address] | PPO | | SHIELD | E BCBS | 8 | dennise | 8 | [address]6 | | | | | | for | | [place], | | | | | | all | | [place] | | | | | | dates | | [address] | | + +--------+ +--------+ + +------+ | BLUE CROSS BLUE | BCBS | | 02/17/20 | [phone] | [address] | PPO | | SHIELD | OUT OF | 8 | 11-Pre | 8 | 1106 | | | | STATE | | sent | | [place], | | | | | | | | [place] | | | | | | | | [address] | | + +--------+ +--------+ + +------+ [...] | | al/Fam | | 1965 | [phone] | [place] [address] | | | [place] | | | 3 (Home) | | + +--------+ +--------+ + + | Jeremias Morris | Person | Self | [birth year] | [address] | | | al/Jf | | 1965 | [phone] | [place] [address] | | | [place] | | | 3 (Home) | | | | | | | [phone] | | | | | | | 4 (Work) | | + +--------+ +--------+ + +"
--- OUTSIDE RECORDS SUMMARY | ~2020-08-03 | XMS | Encounter Summary ---
Demographics + + + | Address | [address] | | | [place] [address] | + + + | Home Phone | | + + + | Preferred Language | Unknown | + + + | Marital Status | Single | + + + | Taoist Affiliation | Unknown | + + + [...] Team Providers + +------+ + | Care Vertical Borer Name | Role | Phone | + [...] | | | | [facility] | [place], [place] | | | | | [address] | [address] | | | | | [facility] | [phone] | | | | | [place], [address] [place] [address] | | | | | | [place], [place] | | | | | | [address] | | | | | | [phone] | | | +--------+ + + + [...] this encounter Miscellaneous Notes Telephone Encounter - Arlin Ivy MD, David - 03/01/2011 5:54 PM PDTAttempted to call p atient today to follow up on his labs that he is to get today or tomorrow and also to discus s use of Long acting beta agonist for his COPD. No answer to both his cell phone and also to cell phone of Stacy his significant other and that was the contact number he would prefer to use per his request last communication with him. documented in this encounter Plan of Treatment Not on filedocumented as of this encounter Visit Diagnoses Not on filedocumented in this encounter"
--- OUTSIDE RECORDS SUMMARY | ~2020-08-03 | XMS | Encounter Summary ---
Demographics + + + | Address | [address] | | | [place] [address] | + + + | Home Phone | | + + + | Preferred Language | Unknown | + + + | Marital Status | Single | + + + | Sikhism Affiliation | Unknown | + + + | Race | White | + + + | Ethnic Group | Not or | + + + Author + + + | Author | [facility] | + + + | Organization | [facility] | + + + | Address | Unknown | + + + | Phone | Unavailable | + + + Support + + +---------+ + | Name | Relationship | Address | Phone | + + +---------+ + | Karma Ortiz | ECON | Unknown | | + + +---------+ + Care Team Providers + +------+ + | Care Highwall Drill Operator Name | Role | Phone | + +------+ + | No Pcp Per Patient | PCP | Unavailable | + +------+ + Reason for Visit + +--------+ + | Reason | Onset | Comments | | | Date | | + +--------+ + | Test Results | 02/26/ | | | | 2010 | | + [...] | | [facility] | [place], [place] | | | | | [address] | [address] | | | | | [facility] | [phone] | | | | | [facility] | | | | | | [place], [place] | | | | | | [address] | | | | | | [phone] | | | +--------+ + + + [...] this encounter Miscellaneous Notes Telephone Encounter - David Walker MD - 03/01/2011 6:25 PM Cem called back . Spoke with her as requested by Jeremias last time we spoke. Explained rational for use of LABA . She understands. Pt will have labs done on Saturday. Will follow up next week on them and hopefully no changes to diuretics/bp meds needed. elephone Encounter - MelinaBenita - 02/26/2011 4:37 PM P DTPatients significant other called again. She wants to make sure that she gets called with results today since the patient cannot be reached by phone while he is at work. Stacy also wants to let the doctors know that she will not be available to answer the phone after today because she will be working tomorrow which makes it very difficult to return calls. Stacy also states that the patient has not been sleeping well and is anxious to get the results.El ectronically signed by Benita Summers at 02/26/2011 4:37 PM PDTTelephone Encounter - Lisa Summers - 02/26/2011 12:30 PM PDTPatients significant other/friend called again to get the r esults of the patients echo and pfts. The final results are available in epic. Daisy kowalski signed by Benita Summers at 02/26/2011 12:30 PM PDTTelephone Encounter - Chantal Rodriguez - 02/26/2011 8:57 AM PDTMark is asking for results of testing done on 02/21/11. Daisy y signed by Chantal Rodriguez at 02/26/2011 8:57 AM PDTdocumented in this encounter Plan of Treatment Not on filedocumented as of this encounter Visit Diagnoses Not on filedocumented in this encounter"
[~2020-08-03 16:27] MED LIST: ADVAIR 100-501 EACH INH; ASPIRIN EC325 MG PO; BLOOD GLUCOSE1 EAC1 MISC; BLOOD GLUCOSE1 EAC8 MISC; DILTIAZEM ER300 MG PO; ELIQUIS5 MG PO; FENOFIBRATE160 MG PO; FLUTICASONE-SA1 EAC3 INH; IPRATROPIU0.2 MG/1 M INH; LANCETS MISC; LISINOPRIL-HCT1 EAC2 PO; METOPROLOL SUC200 MG PO; METOPROLOL TART50 MG PO; NICOTINE PATCH1 EAC1 TD; PREDNISONE20 MG PO; SILDENAFIL CITR50 MG PO; TORSEMIDE20 MG PO; WARFARIN SODIUM5 MG PO; XOPENEX CO1.25 MG/0. INH
--- NOTE | 2020-08-04 13:33 | EKG ---
[facility] [address] [facility] [place] [address] Signed Atrial flutter with 2:[address] abnormality Abnormal ECG When compared with ECG of 03-AUG-2020 09:49, ST now depressed in Inferior leads ST now depressed in Anterolateral leads Nonspecific T wave abnormality no longer evident in Anterior leads Confirmed by ERICKA MALONEY DO ([id number]) on 08/04/2020 1:33:21 PM Electronically Signed By: ERICKA MALONEY DO 08/04/20 1333 PATIENT NAME: ELIAS MCGEE Electrocardiogram DATE OF : 61 PHYSICIAN: ERICKA MALONEY DO REPORT #: [id number] REPORT IS CONFIDENTIAL AND NOT TO BE RELEASED WITHOUT AUTHORIZATION
== END 2020-08-03 20:50 | disposition short-term general hospital (02) ==
LOC: ED 16:27
DX: I48.92 Unspecified atrial flutter (principal); I12.9 Hypertensive chronic kidney disease with stage 1 through stage 4 chronic kidney disease, or unspecified chronic kidney disease; N18.9 Chronic kidney disease, unspecified; J44.9 Chronic obstructive pulmonary disease, unspecified; Z79.899 Other long term (current) drug therapy; F17.200 Nicotine dependence, unspecified, uncomplicated
CPT/HCPCS: 71045; 80053; 83735; 83880; 84484; 85025; 93005; 93010; 96365; 96375; 96376; 99285-25; J3475